=== PATIENT | female | born 1965 | race Caucasian/White ===

== ENCOUNTER 2016-05-05 10:13 | Day surgery (SDC) | payer OTHER, MEDICAID ==
[2016-05-04 16:04] LABS: ALANINE AMINOTRANSFERASE 32 IU/L (9-52); ALBUMIN 3.8 g/dL (3.5-5.0); ALKALINE PHOSPHATASE 64 IU/L (38-126); ANION GAP 10 mEq/L (8-16); ASPARTATE AMINOTRANSFERASE 19 IU/L (14-46); BILIRUBIN,TOTAL 0.5 mg/dL (0.1-1.4); CALCIUM 9.4 mg/dL (8.5-10.4); CARBON DIOXIDE 36 mEq/l (22-31); CHLORIDE 92 mEq/L (97-110); CREATININE 0.7 mg/dL (0.6-1.0); GLOMERULAR FILTRATION RATE > 60; GLUCOSE 110 mg/dL (70-100); SODIUM 138 mEq/L (134-144); TOTAL PROTEIN 7.2 g/dL (6.3-8.2)
--- NOTE | 2016-05-05 08:36 | CPEKG ---
Heart Rate: 65 RR Interval: 923 P-R Interval: 228 QRSD Interval: 104 QT Interval: 424 QTC Interval: 441 P [place]: 70 QRS [place]: 40 T Wave [place]: 46 EKG Severity - ABNORMAL ECG - EKG Impression: SINUS RHYTHM EKG Impression: FIRST DEGREE AV BLOCK EKG Impression: CONSIDER ANTEROSEPTAL INFARCT Electronically Signed By: John Gonzalez 05-May-2016 19:26:48
[~2016-05-05 10:13] MED LIST: LIDO/EPI 1% **Not for Epidural 20 ML MDV ONE; LIDOCAINE HCL 160 MG/4 ML LTA KIT TP ONE
[2016-05-05] MEDS ORDERED: LIDOCAINE 1% 5 ML SDV ID PRN (10:26)
[2016-05-05] MEDS ORDERED: LR 1,000 ML IV ONE (10:26)
[2016-05-05] MEDS ORDERED: LIDOCAINE 1% 5 ML SDV ONE (10:27)
[2016-05-05] MEDS ORDERED: DEXMEDETOMIDINE HCL 200 MCG/2 ML VIAL IV ONE (10:55)
[2016-05-05] MEDS ORDERED: KETAMINE 100 MG/10 ML SYR IVP ONE (10:56)
[2016-05-05] MEDS ORDERED: MIDAZOLAM 2 MG/2 ML VIAL ONE ×2 (10:58→11:35)
[2016-05-05] MEDS ORDERED: PROPOFOL 200 MG/20 ML VIAL ONE (11:02)
[2016-05-05 11:23] LABS: POTASSIUM 3.3 mEq/L (3.5-5.2)
[2016-05-05] MEDS ORDERED: PROPOFOL/EMULSION 500 MG/50 ML BOTTLE IV ONE (11:30)
[2016-05-05] MEDS ORDERED: fentaNYL 100 MCG/2 ML INJ ONE (11:31)
[2016-05-05] MEDS ORDERED: ROCURONIUM 50 MG/5 ML VIAL ONE (11:34)
[2016-05-05] MEDS ORDERED: SUCCINYLCHOLINE CHLORIDE*ANESTHESIA ONLY*200 MG/10 ML SYR IVP ONE (11:34)
[2016-05-05] MEDS ORDERED: LIDOCAINE 2% 5 ML SDV ONE (11:34)
[2016-05-05] MEDS ORDERED: SUGAMMADEX SODIUM 200 MG/2 ML VIAL IVP ONE (11:58)
[2016-05-05] MEDS ORDERED: HYDROCODONE/APAP 5/325 TAB ONE (13:36)
--- NOTE | 2016-05-05 15:27 | GOP ---
[f rep st] OPERATIVE REPORT DATE OF OPERATION: 05/05/2016 SURGEON: Neeraj Orlando MD ANESTHESIA: General endotracheal. PREOPERATIVE DIAGNOSIS: Tracheostomal fistula, persistent. POSTOPERATIVE DIAGNOSIS: Tracheostomal fistula, persistent. PROCEDURE PERFORMED: Planned and performed: Closure of tracheostomal fistula. FINDINGS: Tracheocutaneous fistula treated by resection of epithelialized margin with 3 layer closur e. ESTIMATED BLOOD LOSS: 10 mL. DESCRIPTION OF PROCEDURE: The patient was placed on the operating table in the supine position. Aft er induction of adequate general endotracheal anesthesia, sterile draping of the anterior neck was pe rformed. The endotracheal tube had been inserted distal to the tracheostomal fistula. The area surr ounding the tracheostomal fistula was infiltrated utilizing 1% lidocaine with 1:100,000 parts epineph rine. Once this had been completed, the epithelialized margin of the tracheostomal fistula was incis ed using a 15 blade. An elliptical incision was created. This was carried down to the subcutaneous tissues and down to the anterior tracheal wall. The epithelialized tissue was then discarded. A 3 l myles closure of the wound was then performed. Interrupted 3-0 Vicryl sutures were placed in the deep layer overlying the trachea, completely closing the soft tissue. A 2nd layer closure with 4-0 Vicry l sutures was placed, and the skin was closed with interrupted 5-0 nylon sutures. At this point, the neck skin was cleansed. A Band-Aid was applied. The patient was then awakened and transferred to [facility] postanesthesia recovery area in stable condition. FLUID REPLACEMENT: 1000 mL. COMPLICATIONS: None. /[id number]/MODL
== END 2016-05-05 13:51 | disposition home or self-care (01) ==
LOC: FSGY 10:13
PROVIDERS: ATTEND Otolaryngology
PROC: 0BQ10ZZ Repair Trachea, Open Approach (ICD-10-PCS; principal; 2016-05-05 11:00)
PROC: 0JQ40ZZ Repair Right Neck Subcutaneous Tissue and Fascia, Open Approach (ICD-10-PCS; principal; 2016-05-05 11:00)
DX: Z43.0 Encounter for attention to tracheostomy (principal); C14.0 Malignant neoplasm of pharynx, unspecified; E66.01 Morbid (severe) obesity due to excess calories; J44.9 Chronic obstructive pulmonary disease, unspecified; G89.29 Other chronic pain; G35 Multiple sclerosis; K21.9 Gastro-esophageal reflux disease without esophagitis; F32.9 Major depressive disorder, single episode, unspecified
CPT/HCPCS: J0330; J2250; J2704; J3010

== ENCOUNTER 2017-02-17 17:45 | Inpatient (IN) | payer OTHER, MEDICAID ==
[2017-02-17] MEDS ORDERED: OXYCODONE/APAP 5/325 TAB PO ONE (18:12)
[2017-02-17] MEDS ORDERED: IPRATROPIUM/ALBUTEROL 3 ML DEYVIAL IH ONE (18:24)
--- NOTE | 2017-02-17 18:24 | EDPHY ---
H & P Stated Complaint: generalized bodyaches, diarrhea,cough,dyspnea Time Seen by Provider: 02/17/17 18:09 HPI/ROS: CHIEF COMPLAINT: Cough, diarrhea HISTORY OF PRESENT ILLNESS: The patient is a 51-year-old female with a history of COPD and MS who comes to the emergency department complaining of cough for the last 5 days as well as diarrhea. She wears 1 L of oxygen at night but has felt increasingly short of breath over the last week. She was satting 78% at triage. She states that she was exposed to a niece who lives with her who is diagnosed with the flu yesterday. Patient thinks that she may have had fevers off and on over the last week but is not sure. No vomiting. No abdominal pain. Cough has been nonproductive. She denies chest pain. No sinus or throat symptoms. She does complain of diffuse body aches. REVIEW OF SYSTEMS: Constitutional: See HPI EENTM: denies: blurred vision, double vision, nose congestion Respiratory: See HPI Cardiac: denies: chest pain, irregular heart rate, lightheadedness, palpitations Gastrointestinal/Abdominal: denies: abdominal pain, diarrhea, nausea, vomiting, blood streaked stools Genitourinary: denies: dysuria, frequency, hematuria, pain Musculoskeletal: See HPI Skin: denies: lesions, rash, jaundice, bruising Neurological: denies: headache, numbness, paresthesia, tingling, dizziness, weakness Hematologic/Lymphatic: denies: blood clots, easy bleeding, easy bruising Immunologic/allergic: denies: HIV/AIDS, transplant EXAM: GENERAL: Appears older than stated age, weak HEAD: Atraumatic, normocephalic. EYES: Pupils equal round and reactive to light, extraocular movements intact, sclera anicteric, conjunctiva are normal. ENT: TMs normal, nares patent, oropharynx clear without exudates. Moist mucous membranes. NECK: Normal range of motion, supple without lymphadenopathy or JVD. LUNGS: Breath sounds clear to auscultation bilaterally and equal. No wheezes rales or rhonchi. HEART: Regular rate and rhythm without murmurs, rubs or gallops. ABDOMEN: Soft, nontender, normoactive bowel sounds. No guarding, no rebound. No masses appreciated. BACK: No CVA tenderness, no spinal tenderness, step-offs or deformities EXTREMITIES: Normal range of motion, no pitting or edema. No clubbing or cyanosis. NEUROLOGICAL: Cranial nerves II through XII grossly intact. Normal speech, normal gait. 5/5 strength, normal movement in all extremities, normal sensation PSYCH: Normal mood, normal affect. SKIN: Warm, dry, normal turgor, no visible rashes or lesions. Source: Patient Exam Limitations: No limitations - Personal History LMP (Females 10-55): Hysterectomy Current Tetanus Diphtheria and Acellular Pertussis (TDAP): Yes Tetanus Vaccine Date: 2014 - Medical/Surgical History Hx Asthma: No Hx Chronic Respiratory Disease: Yes Hx Diabetes: No Hx Cardiac Disease: No Hx Renal Disease: No Hx Cirrhosis: No Hx Alcoholism: No Hx HIV/AIDS: No Hx Splenectomy or Spleen Trauma: No Other PMH: MS, COPD, nerve pain in feet, TRACH, tube feeds, GTUBE, hysterectomy , vocal cord CA - Family History Significant Family History: No pertinent family hx - Social History Smoking Status: Current every day smoker Alcohol Use: None Drug Use: None Constitutional: Initial Vital Signs Temperature (C) 37.1 C 02/17/17 18:01 Heart Rate 80 02/17/17 18:01 Respiratory Rate 20 02/17/17 18:01 Blood Pressure 103/62 02/17/17 18:01 O2 Sat (%) 78 L 02/17/17 18:01 O2 Delivery Mode Nasal Cannula O2 (L/minute) 5 Allergies/Adverse Reactions: No Known Allergies Allergy (Verified 05/03/16 10:27) Home Medications: Medication Instructions Recorded Albuterol [Proventil Inhaler HFA 1 - 2 puffs IH Q4H PRN 01/12/16 (*)] Budesonide/Formoterol 160/4.5 2 puffs IH BID 01/12/16 [Symbicort 160-4.5 Mcg Inh (*)] Diclofenac Sodium [Voltaren 75 MG 75 mg PO BID 01/12/16 (*)] Gabapentin [Neurontin 100 MG (*)] 100 mg PO BID 01/12/16 Hydrochlorothiazide [HCTZ (*)] 25 mg PO BID 01/12/16 Ranitidine HCl [Zantac] 150 mg PO BID PRN 01/12/16 Amitriptyline HCl [Elavil 50 mg 200 mg PO HS 02/17/17 (*)] Cyclobenzaprine [Flexeril 10 MG 10 mg PO TID 02/17/17 (*)] DULoxetine [Cymbalta 60 MG (*)] 60 mg PO BID 02/17/17 Diphenoxylate HCl/Atrop Sulf 1 tab PO DAILY PRN 02/17/17 [Lomotil Tab (*)] Escitalopram Oxalate [Lexapro 10 20 mg PO DAILY 02/17/17 MG] Morphine Sulfate [Alicia] 100 mg PO BID 02/17/17 oxyCODONE IR [Oxycodone Ir (*)] 15 mg PO TID 02/17/17 predniSONE 5 mg PO DAILY 02/17/17 traMADol [Ultram 50 mg (*)] 50 - 100 mg PO Q6 PRN 02/17/17 Medical Decision Making - Diagnostics EKG Interpretation: An EKG obtained and was read and documented in trace view. Please see trace view for full reading and report. Sinus rhythm no acute ischemic changes, similar to previous Imaging: Discussed imaging studies w/ driver starting gate Radiologist ED Course/Re-evaluation: 7:30 p.m. I discussed the case with Dr. Mega Cross who agrees with admission and will accept to the medical floor on telemetry. He agrees with potassium repletion and antibiotics. The low potassium is likely due to her diarrhea. She has not yet provided a sample for testing. Initial flu tests are negative however considering exposure we will also send PCR. Differential Diagnosis: Partial list of the Differential diagnosis considered include but were not limited to; pneumonia, bronchitis, influenza, C difficile, dehydration , electrolyte abnormality and although unlikely based on the history and physical exam, I also considered sepsis, acute coronary disease, PE. - Data Points Laboratory Results: Laboratory Results 02/18/17 03:58 02/18/17 03:58 02/18/17 02/18/17 02/18/17 10:00 03:58 03:58 WBC 6.78 10^3/uL 10^3/uL (3.80-9.50) RBC 4.61 10^6/uL 10^6/uL (4.18-5.33) Hgb 15.0 g/dL g/dL (12.6-16.3) Hct 42.5 % % (38.0-47.0) MCV 92.2 fL fL (81.5-99.8) MCH 32.5 pg pg (27.9-34.1) MCHC 35.3 g/dL g/dL (32.4-36.7) RDW 13.1 % % (11.5-15.2) Plt Count 213 10^3/uL 10^3/uL (150-400) MPV 9.2 fL fL (8.7-11.7) Neut % (Auto) 75.0 % H % (39.3-74.2) Lymph % (Auto) 12.5 % L % (15.0-45.0) [place] % (Auto) 11.2 % % (4.5-13.0) Eos % (Auto) 0.1 % L % (0.6-7.6) Baso % (Auto) 0.3 % % (0.3-1.7) Nucleat RBC Rel Count 0.0 % % (0.0-0.2) Absolute Neuts (auto) 5.08 10^3/uL 10^3/uL (1.70-6.50) Absolute Lymphs (auto) 0.85 10^3/uL L 10^3/uL (1.00-3.00) Absolute Monos (auto) 0.76 10^3/uL 10^3/uL (0.30-0.80) Absolute Eos (auto) 0.01 10^3/uL L 10^3/uL (0.03-0.40) Absolute Basos (auto) 0.02 10^3/uL 10^3/uL (0.02-0.10) Absolute Nucleated RBC 0.00 10^3/uL 10^3/uL (0-0.01) Immature Gran % 0.9 % % (0.0-1.1) Seg Neutrophils % 67 % % Band Neutrophils % 10 % % Lymphocytes % 12 % % Monocytes % 10 % % Eosinophils % 1 % % Immature Gran # 0.06 10^3/uL 10^3/uL (0.00-0.10) Absolute Seg Neuts 4.54 10^/uL 10^/uL (1.70-6.50) Absolute Band Neuts 0.68 10^3/uL 10^3/uL (0.00-0.70) Absolute Lymphocytes 0.81 10^3/uL L 10^3/uL (1.00-3.00) Absolute Monocytes 0.68 10^3/uL 10^3/uL (0.30-0.80) Absolute Eosinophils 0.07 10^3/uL 10^3/uL (0.03-0.40) RBC/WBC/PLT Morphology NORMAL (NORMAL) Platelet Estimate ADEQUATE (ADEQ) Sodium 138 mEq/L mEq/L (134-144) Potassium 3.4 mEq/L L mEq/L (3.5-5.2) Chloride 97 mEq/L mEq/L (97-110) Carbon Dioxide 33 mEq/l H mEq/l (22-31) Anion Gap 8 mEq/L mEq/L (8-16) BUN 11 mg/dL mg/dL (7-23) Creatinine 0.7 mg/dL mg/dL (0.6-1.0) Estimated GFR > 60 Glucose 82 mg/dL mg/dL (70-100) Calcium 8.3 mg/dL L mg/dL (8.5-10.4) Magnesium 1.9 mg/dL mg/dL (1.6-2.3) Procalcitonin C. difficile Tox (PCR) NEGATIVE (NEGATIVE) 02/18/17 03:58 WBC RBC Hgb Hct MCV MCH MCHC RDW Plt Count MPV Neut % (Auto) Lymph % (Auto) [place] % (Auto) Eos % (Auto) Baso % (Auto) Nucleat RBC Rel Count Absolute Neuts (auto) Absolute Lymphs (auto) Absolute Monos (auto) Absolute Eos (auto) Absolute Basos (auto) Absolute Nucleated RBC Immature Gran % Seg Neutrophils % Band Neutrophils % Lymphocytes % Monocytes % Eosinophils % Immature Gran # Absolute Seg Neuts Absolute Band Neuts Absolute Lymphocytes Absolute Monocytes Absolute Eosinophils RBC/WBC/PLT Morphology Platelet Estimate Sodium Potassium Chloride Carbon Dioxide Anion Gap BUN Creatinine Estimated GFR Glucose Calcium Magnesium Procalcitonin 0.13 ng/mL H ng/mL (0.02-0.10) C. difficile Tox (PCR) Medications Given: Budesonide/Formoterol Fumarate (Symbicort 160-4.5 Mcg Inhaler) 2 puffs IH BID [facility] Stop: 08/17/17 08:59 Last Admin: 02/18/17 10:32 Dose: Not Given Duloxetine HCl (Cymbalta) 60 mg PO BID [facility] Stop: 08/17/17 08:59 Last Admin: 02/18/17 09:05 Dose: 60 mg Enoxaparin Sodium (Lovenox) 40 mg SC DAILY [facility] Stop: 08/17/17 08:59 Last Admin: 02/18/17 09:06 Dose: 40 mg Escitalopram Oxalate (Lexapro) 20 mg PO DAILY [facility] Stop: 08/17/17 08:59 Last Admin: 02/18/17 09:05 Dose: 20 mg Gabapentin (Neurontin) 100 mg PO BID PRN PRN Reason: NEUROPATHY Stop: 08/16/17 22:13 Last Admin: 02/17/17 22:55 Dose: 100 mg Miscellaneous Medication (Morphine Sulfate [Alicia]) 100 mg PO BID [facility] Stop: 08/17/17 08:59 Last Admin: 02/18/17 11:42 Dose: Not Given Nicotine (Nicoderm Cq) 21 mg TD DAILY [facility] Stop: 08/17/17 11:59 Last Admin: 02/18/17 12:34 Dose: 21 mg Oseltamivir Phosphate (Tamiflu) 75 mg PO BIDMEAL [facility] Stop: 02/22/17 08:01 Last Admin: 02/18/17 09:06 Dose: 75 mg Oxycodone HCl (Oxycodone Ir) 15 mg PO TID PRN PRN Reason: Pain, Severe Stop: 02/27/17 22:13 Last Admin: 02/18/17 03:51 Dose: 15 mg Prednisone (Prednisone) 40 mg PO DAILY [facility] Stop: 08/17/17 10:59 Last Admin: 02/18/17 11:47 Dose: 40 mg Discontinued Medications Albuterol/Ipratropium (Duoneb) 3 ml IH EDNOW ONE Stop: 02/17/17 18:25 Last Admin: 02/17/17 18:30 Dose: 3 ml Hydromorphone HCl (Dilaudid) 1 mg IVP EDNOW ONE Stop: 02/17/17 18:54 Last Admin: 02/17/17 19:14 Dose: 1 mg Sodium Chloride (Ns) 1,000 mls @ 0 mls/hr IV EDNOW ONE; Wide Open PRN Reason: Protocol Stop: 02/17/17 19:26 Last Admin: 02/17/17 19:35 Dose: 1,000 mls Magnesium Sulfate (Magnesium Sulf 2 Gm (Premix)) 50 mls @ 50 mls/hr IV EDNOW ONE Stop: 02/17/17 20:24 Last Admin: 02/17/17 19:38 Dose: 50 mls Azithromycin 500 mg/ Sodium (Chloride) 255 mls @ 255 mls/hr IV EDNOW ONE PRN Reason: Protocol Stop: 02/17/17 20:27 Last Admin: 02/17/17 21:27 Dose: 255 mls Cefazolin Sodium 1 gm/ Sodium (Chloride) 100 mls @ 400 mls/hr IV EDNOW ONE PRN Reason: Protocol Stop: 02/17/17 19:42 Last Admin: 02/17/17 20:18 Dose: 100 mls Potassium Chloride/Sodium Chloride (Ns W/ 20 Kcl/L) 1,000 mls @ 100 mls/hr IV CONT [facility] Stop: 08/16/17 22:14 Last Admin: 02/17/17 22:51 Dose: 1,000 mls Oxycodone HCl (Oxycodone Ir) 5 mg PO ONCE ONE Stop: 02/17/17 22:01 Last Admin: 02/17/17 21:45 Dose: 5 mg Oxycodone/Acetaminophen (Percocet 5/325) 1 tab PO EDNOW ONE Stop: 02/17/17 18:13 Last Admin: 02/17/17 18:15 Dose: Not Given Potassium Chloride (Klor-Con) 40 meq PO EDNOW ONE Stop: 02/17/17 19:26 Last Admin: 02/17/17 19:41 Dose: 40 meq Potassium Chloride (Klor-Con) 60 meq PO ONCE ONE Stop: 02/17/17 22:14 Last Admin: 02/17/17 22:49 Dose: 60 meq Prednisone (Prednisone) 5 mg PO DAILY [facility] Stop: 08/17/17 08:59 Last Admin: 02/18/17 09:06 Dose: 5 mg Departure - Departure Disposition: [facility] Acute Clinical Impression: Dehydration, Hypokalemia Pneumonia Qualifiers: Pneumonia type: due to unspecified organism Laterality: unspecified laterality Lung location: unspecified part of lung Qualified Code(s): J18.9 - Pneumonia, unspecified organism Condition: Fair
--- NOTE | 2017-02-17 18:34 | CPEKG ---
Heart Rate: 77 RR Interval: 779 P-R Interval: 192 QRSD Interval: 116 QT Interval: 416 QTC Interval: 471 P [place]: 36 QRS [place]: 25 T Wave [place]: 21 EKG Severity - ABNORMAL ECG - EKG Impression: SINUS RHYTHM EKG Impression: NONSPECIFIC INTRAVENTRICULAR CONDUCTION DELAY EKG Impression: ABNRM R PROG, CONSIDER ASMI OR LEAD PLACEMENT Electronically Signed By: Jay Mckeon 17-Feb-2017 18:57:49
[2017-02-17] MEDS ORDERED: HYDROmorphONE/DILAUDID 1 MG/ML INJ IVP ONE (18:53)
[2017-02-17 18:58] LABS: % IMMATURE GRANULYOCYTES 0.8 % (0.0-1.1); ABSOLUTE IMMATURE GRANULOCYTES 0.04 10^3/uL (0.00-0.10); ADD DIFF? NO; ADD MORPH? NO; ADD SCAN? YES; ATYPICAL LYMPHOCYTE FLAG 160 (0-99); FRAGMENT RBC FLAG 0 (0-99); HEMATOCRIT 41.5 % (38.0-47.0); LEFT SHIFT FLG 10 (0-99); LIPEMIA HEMOLYSIS FLAG 90 (0-99); MEAN CELL HEMOGLOBIN 32.3 pg (27.9-34.1); MEAN CELL HEMOGLOBIN CONCENTR. 36.1 g/dL (32.4-36.7); MEAN CELL VOLUME 89.2 fL (81.5-99.8); MEAN PLATELET VOLUME 9.3 fL (8.7-11.7); PLATELET CLUMPS FLAG 0 (0-99); PLATELET COUNT 232 10^3/uL (150-400); RED BLOOD CELL COUNT 4.65 10^6/uL (4.18-5.33); RED CELL DISTRIBUTION WIDTH 12.8 % (11.5-15.2)
[2017-02-17 19:06] LABS: INR 1.02 (0.83-1.16); PROTIME(PATIENT) 13.1 SEC (12.0-15.0); SCAN NEGATIVE
[2017-02-17 19:16] LABS: ALANINE AMINOTRANSFERASE 39 IU/L (9-52); ALBUMIN 3.1 g/dL (3.5-5.0); ALKALINE PHOSPHATASE 78 IU/L (38-126); ANION GAP 10 mEq/L (8-16); ASPARTATE AMINOTRANSFERASE 33 IU/L (14-46); BILIRUBIN,TOTAL 0.7 mg/dL (0.1-1.4); BILIRUBIN-CONJUGATED 0.6 mg/dL (0.0-0.5); BILIRUBIN-UNCONJUGATED 0.1 mg/dL (0.0-1.1); CALCIUM 8.2 mg/dL (8.5-10.4); CARBON DIOXIDE 32 mEq/l (22-31); CHLORIDE 93 mEq/L (97-110); CREATININE 0.8 mg/dL (0.6-1.0); GLOMERULAR FILTRATION RATE > 60; GLUCOSE 106 mg/dL (70-100); SODIUM 135 mEq/L (134-144); TOTAL PROTEIN 6.2 g/dL (6.3-8.2)
[2017-02-17 19:21] LABS: POTASSIUM 2.4 mEq/L (3.5-5.2)
[2017-02-17] MEDS ORDERED: NS 1,000 ML IV ONE (19:25)
[2017-02-17] MEDS ORDERED: MAGNESIUM SULF 2 GM/WATER 50 ML IV ONE (19:25)
[2017-02-17] MEDS ORDERED: POTASSIUM CL 10 MEQ TAB PO ONE (19:25)
[2017-02-17] MEDS ORDERED: ceFAZolin 1 GM in NS 100 ML IV ONE (19:28)
[2017-02-17] MEDS ORDERED: POTASSIUM CL 20 MEQ TAB ONE (19:45)
[2017-02-17] MEDS: AZITHROMYCIN IV 500 MG in NS 250 ML IV ONE ×2 (20:55→21:27)
[2017-02-17] MEDS ORDERED: oxyCODONE IR 5 MG TAB PO ONE (22:00)
[2017-02-17] MEDS ORDERED: ONDANSETRON DISINTEGRATING 4 MG TAB PO PRN (22:10)
[2017-02-17] MEDS ORDERED: ONDANSETRON 4 MG/2 ML VIAL IVP PRN (22:10)
[2017-02-17] MEDS ORDERED: POTASSIUM CL 20 MEQ TAB PO ONE (22:13)
[2017-02-17] MEDS ORDERED: NS W/ 20 KCl/L 1,000 ML IV SCH (22:15)
[2017-02-17] MEDS: GABAPENTIN 100 MG CAP PO PRN (22:55)
[2017-02-17] MEDS: oxyCODONE IR 15 MG TAB PO PRN (22:55)
[2017-02-17] MEDS: OSELTAMIVIR PHOSPHATE 75 MG CAP PO SCH (22:55)
--- NOTE | 2017-02-17 23:26 | PDGENHP ---
History and Physical - Chief Complaint SOB, Diarrhea - History of Present Illness 51 yo F w/ MS, chronic pain, hx of laryngeal CA, COPD, and HTN presents with 5 days of multiple symptoms. Patient first began to feel fatigued about 5 days ago. Then over the ensuing days she began to notice progressive fatigue, cough, SOB, and then diarrhea. The worsening diarrhea over the last 2 days is what led to her coming to the ED. She reports her niece had a viral illness in the last week as well. At the time of my evaluation patient is complaining only of fatigue. In the ED a flu PCR was positive and her laboratory work-up was notable for significant hypokalemia. Due to a CXR with multiple infiltrates, she received CAP coverage along with fluids, magnesium, and potassium. History Information - Allergies/Home Medication List Allergies/Adverse Reactions: No Known Allergies Allergy (Verified 05/03/16 10:27) Home Medications: Albuterol [Proventil Inhaler HFA (*)] 1 - 2 puffs IH Q4H PRN 01/12/16 [Last Taken 05/03/16] Budesonide/Formoterol 160/4.5 [Symbicort 160-4.5 Mcg Inh (*)] 2 puffs IH BID 07/24 [Last Taken 05/04/16] Diclofenac Sodium [Voltaren 75 MG (*)] 75 mg PO BID 01/12/16 [Last Taken ] Gabapentin [Neurontin 100 MG (*)] 100 mg PO BID 01/12/16 [Last Taken 02/17/17] Hydrochlorothiazide [HCTZ (*)] 25 mg PO BID 01/12/16 [Last Taken 02/17/17] Ranitidine HCl [Zantac] 150 mg PO BID PRN 01/12/16 [Last Taken 02/17/17] Amitriptyline HCl [Elavil 50 mg (*)] 200 mg PO HS 02/17/17 [Last Taken 02/16/17] Cyclobenzaprine [Flexeril 10 MG (*)] 10 mg PO TID 02/17/17 [Last Taken 02/17/17] DULoxetine [Cymbalta 60 MG (*)] 60 mg PO BID 02/17/17 [Last Taken 02/17/17] Diphenoxylate HCl/Atrop Sulf [Lomotil Tab (*)] 1 tab PO DAILY PRN 02/17/17 [ Last Taken Unknown] Escitalopram Oxalate [Lexapro 10 MG] 20 mg PO DAILY 02/17/17 [Last Taken ] Morphine Sulfate [Alicia] 100 mg PO BID 02/17/17 [Last Taken Unknown] oxyCODONE IR [Oxycodone Ir (*)] 15 mg PO TID 02/17/17 [Last Taken Unknown] predniSONE 5 mg PO DAILY 02/17/17 [Last Taken 02/17/17] traMADol [Ultram 50 mg (*)] 50 - 100 mg PO Q6 PRN 02/17/17 [Last Taken Unknown] I have personally reviewed and updated: family history, medical history - Past Medical History COPD, hypertension Additional medical history: Chronic pain. MS - Surgical History Additional surgical history: Partial laryngectomy - Family History Positive for: cancer - Social History Smoking Status: Current every day smoker Alcohol Use: None Drug Use: None Review of Systems Review of Systems: ROS: 10pt was reviewed & negative except for what was stated in HPI & below Physical Exam Physical Exam: Temp Pulse Resp BP Pulse Ox 36.6 C 78 19 111/76 94 02/17/17 21:15 02/17/17 21:15 02/17/17 21:15 02/17/17 21:15 02/17/17 21:15 O2 (L/minute) 4 Constitutional: no apparent distress, not in pain Eyes: PERRL, EOMI Ears, Nose, Mouth, Throat: moist mucous membranes, no oral mucosal ulcers Cardiovascular: regular rate and rhythym, no murmur, rub, or gallop, edema (2+ b /l MARTA) Respiratory: no respiratory distress, other (Crackles over bilateral mid-lung santos), No expiratory wheeze Gastrointestinal: normoactive bowel sounds, soft, non-tender abdomen Skin: warm, normal color Musculoskeletal: full muscle strength, no muscle tenderness Neurologic: AAOx3, CN II-XII Intact Psychiatric: interacting appropriately, not anxious Lab Data & Imaging Review 02/17/17 18:50 02/17/17 18:50 WBC 5.03 10^3/uL (3.80-9.50) 02/17/17 18:50 RBC 4.65 10^6/uL (4.18-5.33) 02/17/17 18:50 Hgb 15.0 g/dL (12.6-16.3) 02/17/17 18:50 Hct 41.5 % (38.0-47.0) 02/17/17 18:50 MCV 89.2 fL (81.5-99.8) 02/17/17 18:50 MCH 32.3 pg (27.9-34.1) 02/17/17 18:50 MCHC 36.1 g/dL (32.4-36.7) 02/17/17 18:50 RDW 12.8 % (11.5-15.2) 02/17/17 18:50 Plt Count 232 10^3/uL (150-400) 02/17/17 18:50 MPV 9.3 fL (8.7-11.7) 02/17/17 18:50 Neut % (Auto) 65.2 % (39.3-74.2) 02/17/17 18:50 Lymph % (Auto) 16.9 % (15.0-45.0) 02/17/17 18:50 [place] % (Auto) 16.9 % (4.5-13.0) H 02/17/17 18:50 Eos % (Auto) 0.0 % (0.6-7.6) L 02/17/17 18:50 Baso % (Auto) 0.2 % (0.3-1.7) L 02/17/17 18:50 Nucleat RBC Rel Count 0.0 % (0.0-0.2) 02/17/17 18:50 Absolute Neuts (auto) 3.28 10^3/uL (1.70-6.50) 02/17/17 18:50 Absolute Lymphs (auto) 0.85 10^3/uL (1.00-3.00) L 02/17/17 18:50 Absolute Monos (auto) 0.85 10^3/uL (0.30-0.80) H 02/17/17 18:50 Absolute Eos (auto) 0.00 10^3/uL (0.03-0.40) L 02/17/17 18:50 Absolute Basos (auto) 0.01 10^3/uL (0.02-0.10) L 02/17/17 18:50 Absolute Nucleated RBC 0.00 10^3/uL (0-0.01) 02/17/17 18:50 Immature Gran % 0.8 % (0.0-1.1) 02/17/17 18:50 Immature Gran # 0.04 10^3/uL (0.00-0.10) 02/17/17 18:50 PT 13.1 SEC (12.0-15.0) 02/17/17 18:50 INR 1.02 (0.83-1.16) 02/17/17 18:50 APTT 38.0 SEC (23.0-38.0) 02/17/17 18:50 VBG Lactic Acid 0.8 mmol/L (0.7-2.1) 02/17/17 18:50 Sodium 135 mEq/L (134-144) 02/17/17 18:50 Potassium 2.4 mEq/L (3.5-5.2) L* 02/17/17 18:50 Chloride 93 mEq/L (97-110) L 02/17/17 18:50 Carbon Dioxide 32 mEq/l (22-31) H 02/17/17 18:50 Anion Gap 10 mEq/L (8-16) 02/17/17 18:50 BUN 12 mg/dL (7-23) 02/17/17 18:50 Creatinine 0.8 mg/dL (0.6-1.0) 02/17/17 18:50 Estimated GFR > 60 02/17/17 18:50 Glucose 106 mg/dL (70-100) H 02/17/17 18:50 Calcium 8.2 mg/dL (8.5-10.4) L 02/17/17 18:50 Magnesium 1.4 mg/dL (1.6-2.3) L 02/17/17 Unknown Total Bilirubin 0.7 mg/dL (0.1-1.4) 02/17/17 18:50 Conjugated Bilirubin 0.6 mg/dL (0.0-0.5) H 02/17/17 18:50 Unconjugated Bilirubin 0.1 mg/dL (0.0-1.1) 02/17/17 18:50 AST 33 IU/L (14-46) 02/17/17 18:50 ALT 39 IU/L (9-52) 02/17/17 18:50 Alkaline Phosphatase 78 IU/L (38-126) 02/17/17 18:50 Total Protein 6.2 g/dL (6.3-8.2) L 02/17/17 18:50 Albumin 3.1 g/dL (3.5-5.0) L 02/17/17 18:50 Lipase 50 IU/L (23-300) 02/17/17 18:50 Nasal Influenza A PCR FLU A DETECTED (NEGATIVE) H 02/17/17 18:25 Nasal Influenza B PCR NEGATIVE FOR FLU B (NEGATIVE) 02/17/17 18:25 Influenza A,B Rapid NEGATIVE FOR FLU (NEGATIVE) 02/17/17 18:25 Visualized and Interpreted Chest x-ray results: Yes Chest X-Ray results: other (Bronchitis, atelectasis, and possible multifocal pneumonia) Assessment & Plan Assessment: 51 yo F presenting with fatigue, SOB, diarrhea, and possible pneumonia likely related to influenza infection. Plan: 1. Influenza - Likely explanatory of fatigue, diarrhea, and possible multifocal pneumonia. - Tamiflu 75 mg BID x5 days noting hospitalization and pre-existing pulmonary disease - mIVF w/ K 2. Diarrhea - Most likely related to above and complicated by significant hypokalemia. - Will check GI PCR to rule out additional infectious etiology 3. COPD, Acute on Chronic HRF - Currently requiring 3 L/min via NC, she usually wears 2L nocturnally. Worsening likely 2/2 acute respiratory infection. On Symbicort as an outpatient with on evidence of acute exacerbation currently. - Continue Symbicort, albuterol PRN - Influenza treatment as above - Wean O2 as able 4. Multifocal infiltrates - Possible early pneumonia, but favor viral etiology noting clinical picture. S/p abx in ED. - Hold further antibiotics, check procalcitonin 5. HTN - Will hold HCTZ noting dehydration, hypokalemia, and low/normal BP 6. Hypokalemia - Secondary to diarrhea, replete PRN 7. Chronic Pain - On morphine 100 mg BID, oxycodone 15 mg TID, gabapentin, duloxetine, and flexeril as an outpatient, will continue. 8. MS - On chronic low dose prednisone for this. Diet - Regular Code - Full Ppx - LMWH Dispo - Admit to observation status
[2017-02-18] MEDS: oxyCODONE IR 15 MG TAB PO PRN ×3 (03:51→23:45)
[2017-02-18 04:36] LABS: % IMMATURE GRANULYOCYTES 0.9 % (0.0-1.1); ABSOLUTE IMMATURE GRANULOCYTES 0.06 10^3/uL (0.00-0.10); ADD DIFF? NO; ADD MORPH? NO; ADD SCAN? YES; FRAGMENT RBC FLAG 0 (0-99); HEMATOCRIT 42.5 % (38.0-47.0); LEFT SHIFT FLG 10 (0-99); LIPEMIA HEMOLYSIS FLAG 90 (0-99); MEAN CELL HEMOGLOBIN 32.5 pg (27.9-34.1); MEAN CELL HEMOGLOBIN CONCENTR. 35.3 g/dL (32.4-36.7); MEAN CELL VOLUME 92.2 fL (81.5-99.8); MEAN PLATELET VOLUME 9.2 fL (8.7-11.7); PLATELET CLUMPS FLAG 0 (0-99); PLATELET COUNT 213 10^3/uL (150-400); RED BLOOD CELL COUNT 4.61 10^6/uL (4.18-5.33); RED CELL DISTRIBUTION WIDTH 13.1 % (11.5-15.2)
[2017-02-18 04:56] LABS: ANION GAP 8 mEq/L (8-16); CALCIUM 8.3 mg/dL (8.5-10.4); CARBON DIOXIDE 33 mEq/l (22-31); CHLORIDE 97 mEq/L (97-110); CREATININE 0.7 mg/dL (0.6-1.0); GLOMERULAR FILTRATION RATE > 60; GLUCOSE 82 mg/dL (70-100); MAGNESIUM 1.9 mg/dL (1.6-2.3); POTASSIUM 3.4 mEq/L (3.5-5.2); SODIUM 138 mEq/L (134-144)
[2017-02-18 04:58] LABS: ATYPICAL LYMPHOCYTE FLAG 150 (0-99)
[2017-02-18 05:19] LABS: SCAN POSITIVE
[2017-02-18 05:26] LABS: PLATELET ESTIMATE ADEQUATE (ADEQ)
[2017-02-18] MEDS ORDERED: predniSONE 5 MG TAB PO SCH (09:00)
[2017-02-18] MEDS: DULoxetine 60 MG CAP PO SCH ×2 (09:05→21:19)
[2017-02-18] MEDS: ESCITALOPRAM OXALATE 10 MG TAB PO SCH (09:05)
[2017-02-18] MEDS: OSELTAMIVIR PHOSPHATE 75 MG CAP PO SCH ×2 (09:06→18:06)
[2017-02-18] MEDS: ENOXAPARIN 40 MG/0.4 ML SYR SC SCH (09:06)
[2017-02-18] MEDS: BUDESONIDE/FORMOTEROL 160/4.5 60 PUFFS/MDI IH SCH ×2 (10:32→22:10)
--- NOTE | 2017-02-18 10:36 | ASMTCMCOM ---
CM Note CM Note Notes: 02/18/2017 Case Management Note: Met w/pt. SATNAM signed Pt lives with daughter Denice @ [phone]. Pt reports using [facility] in the past, but is not current with any home agency. No case management d/c needs identified at this time. There are no therapy evals ordered. Case Management d/c poc: Home independent when medically stable with follow up as directed. Date Signed: 02/18/2017 10:35 AM Electronically Signed By:Simona Roldan RN
--- NOTE | 2017-02-18 10:59 | HOSPPROG ---
Hospitalist Progress Note Assessment/Plan: Medicall complex patient First encounter 51 yo female admitted with Acute on Chronic resp failure due to influenza A infection. she also has diarrhea with electrolyte abnormalities #Influenza A #Acute on chronic resp failure, baseline is 2L nocturnally #COPD with mild exacerbation #Viral pneumonia, bilateral. Mildly elevated PC. No Leukocytosis, Afebrile #Diarrhea, w/u pending #Weakness and Deconditioning #Hypokalemia, improving #Hypomagnesemia, improving #HTN, holding HCTZ #Dehydration, on IVF #Chronic pain syndrome #MS, on chronic low dose prednisone Plan: -Start Prednisone, continue nebs -Trial off IVF -Check for c-diff, stool culture -Tamiflu -Hold off on abx -Replace Mg and K PRN -PT/OT -Full code -Lovenox for DVT proph -Dispo: change to inpatient Subjective: Still with diarrhea. Still with Hypoxemia. Feel's SOB. No CP. No N/V Objective: Vital Signs Temp Pulse Resp BP Pulse Ox 36.7 C 82 12 112/68 94 02/18/17 07:13 02/18/17 07:13 02/18/17 07:13 02/18/17 07:13 02/18/17 07:13 Laboratory Results 02/18/17 03:58 02/18/17 03:58 02/17/17 02/18/17 02/19/17 05:59 05:59 05:59 Intake Total 1960 Balance 1960 PT 13.1 SEC (12.0-15.0) 02/17/17 18:50 INR 1.02 (0.83-1.16) 02/17/17 18:50 - Physical Exam Constitutional: no apparent distress Eyes: PERRL Ears, Nose, Mouth, Throat: moist mucous membranes, hearing normal Cardiovascular: regular rate and rhythym Respiratory: no respiratory distress, reduced air movement, expiratory wheeze Gastrointestinal: normoactive bowel sounds, soft, non-tender abdomen Skin: warm Neurologic: AAOx3 Psychiatric: interacting appropriately, not anxious, not encephalopathic ICD10 Worksheet Patient Problems: Problems Problem Status Onset Dehydration Acute Hypokalemia Acute Pneumonia Acute Complication of feeding tube Acute Primary squamous cell carcinoma of throat Acute Throat cancer Acute Weakness Acute
--- NOTE | 2017-02-18 11:30 | PDMN ---
Medical Necessity Medical necessity: C/M review: est. > 2 MN LOS for eval and TX of acute and persistent - influenza A, hypoxic respiratory failure, COPD with mild exacerbation, bilateral viral pneumonia, diarrhea, weakness and deconditioning, hypokalemia, hypomagnesemia, dehydration, requiring IV fluids, ongoing oral Prednisone initiation, trail off IV fluids, Tamiflu, pulse oximetry, supplemental O2 4-5L/min, electrolyte replacement as needed, acute inpt PT/OT, comorbid HTN, chronic pain syndrome, chronic hypoxic respiratory failure on baseline nocturnal O2 2L/min., chronic pain syndrome, MS per H/P.
[2017-02-18] MEDS: MORPHINE SULFATE 100 MG PO SCH ×2 (11:42→21:20)
[2017-02-18] MEDS: predniSONE 20 MG TAB PO SCH (11:47)
[2017-02-18] MEDS: NICOTINE 21 MG/24 HR PATCH TD SCH (12:34)
[2017-02-18] MEDS ORDERED: LOPERAMIDE HCL 1 MG/5 ML UDCUP PO ONE (17:18)
[2017-02-18] MEDS ORDERED: PROTOCOL POTASSIUM 1 DOSE MISC PRN (17:34)
[2017-02-18] MEDS ORDERED: POTASSIUM CL 10 MEQ TAB PO ONE (17:44)
[2017-02-18 18:37] LABS: POTASSIUM 3.3 mEq/L (3.5-5.2)
[2017-02-18] MEDS: AMITRIPTYLINE HCL 100 MG TAB PO SCH (21:19)
[2017-02-18] MEDS: LOPERAMIDE HCL 2 MG CAP PO PRN ×2 (21:22→22:48)
[2017-02-18] MEDS: CYCLOBENZAPRINE 10 MG TAB PO PRN (21:23)
[2017-02-18] MEDS: ALBUTEROL 3 ML DEYVIAL IH PRN (22:10)
[2017-02-18] MEDS ORDERED: LOPERAMIDE HCL 2 MG CAP PO PRN (23:11)
[2017-02-19] MEDS ORDERED: POTASSIUM CL 10 MEQ TAB PO ONE ×3 (00:21→19:23)
[2017-02-19 04:48] LABS: POTASSIUM 3.2 mEq/L (3.5-5.2)
[2017-02-19] MEDS: BUDESONIDE/FORMOTEROL 160/4.5 60 PUFFS/MDI IH SCH ×2 (08:58→21:26)
[2017-02-19] MEDS: MORPHINE SULFATE 100 MG PO SCH ×2 (09:25→21:05)
[2017-02-19] MEDS: NICOTINE 21 MG/24 HR PATCH TD SCH (09:26)
[2017-02-19] MEDS: ENOXAPARIN 40 MG/0.4 ML SYR SC SCH (09:26)
[2017-02-19] MEDS: ESCITALOPRAM OXALATE 10 MG TAB PO SCH (09:26)
[2017-02-19] MEDS: predniSONE 20 MG TAB PO SCH (09:26)
[2017-02-19] MEDS: OSELTAMIVIR PHOSPHATE 75 MG CAP PO SCH ×2 (09:27→17:14)
[2017-02-19] MEDS: DULoxetine 60 MG CAP PO SCH ×2 (09:27→19:22)
[2017-02-19] MEDS: CYCLOBENZAPRINE 10 MG TAB PO PRN (09:32)
[2017-02-19] MEDS: oxyCODONE IR 15 MG TAB PO PRN ×2 (09:32→17:14)
[2017-02-19] MEDS ORDERED: FUROSEMIDE 20 MG/2 ML VIAL IVP ONE (10:13)
--- NOTE | 2017-02-19 10:20 | HOSPPROG ---
Hospitalist Progress Note Assessment/Plan: Medicall complex patient 51 yo female admitted with Acute on Chronic resp failure due to influenza A infection. Steroids were started n 02/19 and she is starting to feel better. However she is on 5L O2. She also has worsened LE edema. She reports some chronic lasix intermittently but this is not included in her home medication list. Initially, she received IVF due to Dehydration Diarrhea is improving. No signs of C-Diff #Influenza A #Acute on chronic resp failure, baseline is 2L nocturnally #COPD with mild exacerbation #Viral pneumonia, bilateral. Mildly elevated PC. No Leukocytosis, Afebrile #Diarrhea, w/u pending. A GI pathogen panel was ordered by the ED but it's unclear if it was sent #Weakness and Deconditioning #Hypokalemia, improving #Hypomagnesemia, improving #HTN, holding HCTZ #Dehydration, on IVF #Tobacco abuse disorder. On nicotine patch #Chronic pain syndrome #MS, on chronic low dose prednisone Plan: -Lasix 20mg IV x 1, may need additional -repeat CXR in a.m -check BNP now -Cont Tamiflu -Loperamide PRN -Hold off on abx -Replace Mg and K PRN -PT/OT -Full code -Lovenox for DVT proph -Dispo: Keep inpatient Subjective: Resp status is improving. + Cough. + leg swelling. Afebrile. Objective: Vital Signs Temp Pulse Resp BP Pulse Ox 36.7 C 88 16 108/85 H 90 L 02/19/17 07:07 02/19/17 09:05 02/19/17 09:05 02/19/17 07:07 02/19/17 09:05 Laboratory Results 02/19/17 03:30 02/18/17 02/19/17 02/20/17 05:59 05:59 05:59 Intake Total 1620 Balance 1620 PT 13.1 SEC (12.0-15.0) 02/17/17 18:50 INR 1.02 (0.83-1.16) 02/17/17 18:50 - Physical Exam Constitutional: no apparent distress Eyes: PERRL Ears, Nose, Mouth, Throat: moist mucous membranes, hearing normal Cardiovascular: regular rate and rhythym, edema (trace to 1 +) Respiratory: no respiratory distress, reduced air movement, rhonchi Gastrointestinal: normoactive bowel sounds, soft, non-tender abdomen Skin: warm Neurologic: AAOx3 Psychiatric: interacting appropriately, not anxious, not encephalopathic ICD10 Worksheet Patient Problems: Problems Problem Status Onset Dehydration Acute Hypokalemia Acute Pneumonia Acute Complication of feeding tube Acute Primary squamous cell carcinoma of throat Acute Throat cancer Acute Weakness Acute
[2017-02-19] MEDS: ACETAMINOPHEN 325 MG TAB PO PRN ×2 (12:18→19:21)
[2017-02-19 18:40] LABS: POTASSIUM 3.8 mEq/L (3.5-5.2)
[2017-02-19] MEDS: AMITRIPTYLINE HCL 100 MG TAB PO SCH (19:21)
[2017-02-20] MEDS: oxyCODONE IR 15 MG TAB PO PRN ×3 (02:14→20:22)
[2017-02-20] MEDS: CYCLOBENZAPRINE 10 MG TAB PO PRN ×3 (02:15→20:23)
[2017-02-20] MEDS: ALBUTEROL 3 ML DEYVIAL IH PRN (02:38)
[2017-02-20 05:42] LABS: ANION GAP 5 mEq/L (8-16); CALCIUM 8.5 mg/dL (8.5-10.4); CARBON DIOXIDE 33 mEq/l (22-31); CHLORIDE 100 mEq/L (97-110); CREATININE 0.5 mg/dL (0.6-1.0); GLOMERULAR FILTRATION RATE > 60; GLUCOSE 103 mg/dL (70-100); MAGNESIUM 1.3 mg/dL (1.6-2.3); POTASSIUM 3.4 mEq/L (3.5-5.2); SODIUM 138 mEq/L (134-144)
[2017-02-20] MEDS: guaiFENesin 600 MG TAB.ER PO PRN ×2 (06:10→20:22)
[2017-02-20] MEDS ORDERED: POTASSIUM CL 10 MEQ TAB PO ONE ×3 (07:49→11:00)
[2017-02-20] MEDS: BUDESONIDE/FORMOTEROL 160/4.5 60 PUFFS/MDI IH SCH ×2 (08:05→20:43)
[2017-02-20] MEDS ORDERED: MAGNESIUM SULF 2 GM/WATER 50 ML IV ONE (08:24)
[2017-02-20] MEDS: ESCITALOPRAM OXALATE 10 MG TAB PO SCH (08:47)
[2017-02-20] MEDS: DULoxetine 60 MG CAP PO SCH ×2 (08:47→20:23)
[2017-02-20] MEDS: predniSONE 20 MG TAB PO SCH (08:47)
[2017-02-20] MEDS: ENOXAPARIN 40 MG/0.4 ML SYR SC SCH (08:48)
[2017-02-20] MEDS: OSELTAMIVIR PHOSPHATE 75 MG CAP PO SCH ×2 (08:48→18:06)
[2017-02-20] MEDS: NICOTINE 21 MG/24 HR PATCH TD SCH (08:48)
[2017-02-20] MEDS: FUROSEMIDE 40 MG/4 ML VIAL IVP SCH ×2 (08:48→15:17)
[2017-02-20] MEDS ORDERED: POTASSIUM CL 20 MEQ TAB PO SCH (09:00)
[2017-02-20] MEDS: MORPHINE SULFATE 100 MG PO SCH ×2 (09:01→20:37)
[2017-02-20] MEDS: IPRATROPIUM/ALBUTEROL 3 ML DEYVIAL IH SCH ×2 (11:00→15:58)
--- NOTE | 2017-02-20 18:31 | HOSPPROG ---
Hospitalist Progress Note Assessment/Plan: Assessment: 51-year-old female presenting with acute COPD exacerbation in the setting of influenza a virus, complicated by suspected acute diastolic congestive heart failure exacerbation Plan: 1. Acute hypoxic respiratory failure. Evidenced by SpO2 of 78% on room air, 89 % on 4 L nasal cannula, up titrated to 7 L high-flow oxygen in order to accomplish stabilization, secondary to a combination of acute COPD exacerbation as well as diastolic CHF -continue high-flow oxygen -continue diuresis 2. Acute diastolic congestive heart failure exacerbation. New problem this provider, further workup indicated. Suspected, evidenced by BNP of 500 + pulmonary edema on chest x-ray, personally interpreted in the setting of IV fluids -increase Lasix to 40 mg IV twice daily, gauge effect -monitor strict I&Os, weights -replete potassium and magnesium -get echocardiogram -monitor electrolytes 3. Influenza a infection. Patient is a presenting with viral syndrome, initiated on Tamiflu, continue 4. Acute COPD exacerbation. Evidenced by diffuse expiratory wheezes, current smoker, counseled patient regarding nicotine replacement therapy including -continue prednisone 40 mg daily -continue scheduled nebulizers 5. Chronic pain with continuous opiate dependency. Continue home pain medications Diet. Regular Prophylaxis. High risk patient, Lovenox 40 Code. Full Disposition. Anticipated discharge uncertain this time, pending pulmonary stabilization Subjective: Patient reports she still shortness of breath with any level of activity Objective: Vital Signs Temp Pulse Resp BP Pulse Ox 36.8 C 88 18 117/68 93 02/20/17 12:00 02/20/17 16:00 02/20/17 12:00 02/20/17 12:00 02/20/17 16:00 Laboratory Results 02/20/17 04:03 02/19/17 02/20/17 02/21/17 05:59 05:59 05:59 Intake Total 1620 2100 650 Balance 1620 2100 650 PT 13.1 SEC (12.0-15.0) 02/17/17 18:50 INR 1.02 (0.83-1.16) 02/17/17 18:50 - Physical Exam Constitutional: no apparent distress, not in pain, chronically ill appearing, uncomfortable Cardiovascular: no murmur, rub, or gallop, tachycardia, edema (Bilateral 1+), No irregularly irregular Respiratory: expiratory wheeze, inspiratory crackles, No reduced air movement, No bronchial breath sounds Gastrointestinal: normoactive bowel sounds, soft, non-tender abdomen, no palpable masses Neurologic: AAOx3, sensation intact bilaterally, No weakness Psychiatric: interacting appropriately, not anxious, not encephalopathic, thought process linear ICD10 Worksheet Patient Problems: Problems Problem Status Onset Throat cancer Acute Weakness Acute Dehydration Acute Complication of feeding tube Acute Primary squamous cell carcinoma of throat Acute Pneumonia Acute Hypokalemia Acute
[2017-02-20] MEDS: AMITRIPTYLINE HCL 100 MG TAB PO SCH (20:22)
[2017-02-20] MEDS: GABAPENTIN 100 MG CAP PO PRN (20:23)
[2017-02-21] MEDS: IPRATROPIUM/ALBUTEROL 3 ML DEYVIAL IH SCH ×5 (00:11→22:10)
[2017-02-21 05:25] LABS: ANION GAP 9 mEq/L (8-16); CALCIUM 8.3 mg/dL (8.5-10.4); CARBON DIOXIDE 36 mEq/l (22-31); CHLORIDE 91 mEq/L (97-110); CREATININE 0.6 mg/dL (0.6-1.0); GLOMERULAR FILTRATION RATE > 60; GLUCOSE 86 mg/dL (70-100); MAGNESIUM 1.3 mg/dL (1.6-2.3); POTASSIUM 3.5 mEq/L (3.5-5.2); SODIUM 136 mEq/L (134-144)
[2017-02-21] MEDS: oxyCODONE IR 15 MG TAB PO PRN ×2 (07:15→21:08)
[2017-02-21] MEDS ORDERED: MAGNESIUM SULF 2 GM/WATER 50 ML IV ONE (08:26)
[2017-02-21] MEDS ORDERED: POTASSIUM CL 20 MEQ TAB PO ONE (08:27)
[2017-02-21] MEDS: OSELTAMIVIR PHOSPHATE 75 MG CAP PO SCH ×2 (08:45→18:01)
[2017-02-21] MEDS: ESCITALOPRAM OXALATE 10 MG TAB PO SCH (08:45)
[2017-02-21] MEDS: predniSONE 20 MG TAB PO SCH (08:45)
[2017-02-21] MEDS: DULoxetine 60 MG CAP PO SCH ×2 (08:45→20:46)
[2017-02-21] MEDS: FUROSEMIDE 40 MG/4 ML VIAL IVP SCH ×2 (08:45→14:19)
[2017-02-21] MEDS: NICOTINE 21 MG/24 HR PATCH TD SCH (08:46)
[2017-02-21] MEDS: ENOXAPARIN 40 MG/0.4 ML SYR SC SCH (08:46)
[2017-02-21] MEDS: MORPHINE SULFATE 100 MG PO SCH ×2 (09:13→20:49)
[2017-02-21] MEDS: BUDESONIDE/FORMOTEROL 160/4.5 60 PUFFS/MDI IH SCH ×2 (10:49→22:10)
--- NOTE | 2017-02-21 10:58 | ECHO ---
[email or web address] [address] [address] Main: [phone] Fax: Transthoracic Echocardiogram Name: KAITLIN MCCORMICK MR#: [id number] Study Date: 02/21/2017 Study Time: 09:19 AM Date of : 1965 Age: 51 year(s) Height: 170.2 cm (67 in.) Weight: 99.79 kg (220 lb.) BSA: 2.11 m2 Gender: Female Examination: Echo Indication: FLU, Eval LV Fx Image Quality: Contrast: Requested by: Froilan Maldonado BP: 95 mmHg/80 mmHg Heart Rate: Rhythm: Indication: FLU, Eval LV Fx Procedure Staff [employer] Teacher: Phong Sandoval Reading Physician: Chet Sanderson Requesting Provider: Conclusions: Normal size left ventricle. EF is 68 %. The mitral valve is normal in appearance and function. The aortic valve is normal in appearance and function. No pericardial effusion. Measurements: Chambers Valvular Assessment AV/MV Valvular Assessment TV/PV Normal Normal Normal Name Value Range Name Value Range Name Value Range Ao Rose (MM): 3.3 cm (2.2 cm-3.7 AV Vmax: 1.68 m/s (1 m/s-1.7 PV Vmax: 1.36 m/s (0.6 m/s-0.9 cm) m/s) m/s) IVSd (2D): 1.0 cm (0.6 cm-1.1 AV maxP mmHg ( - ) PV PGmax: 7 mmHg ( - ) cm) LVOT Vmax: 1.41 m/s (0.7 m/s-1.1 LVDd (2D): 3.3 cm (3.9 cm-5.3 m/s) cm) MV E Vmax: 0.67 m/s ( - ) LVDs (2D): 2.1 cm (2.1 cm-4 MV A Vmax: 1.09 m/s ( - ) cm) MV E/A: 0.61 ( - ) LVPWd (2D): 1.0 cm ( - ) LVEF (2D): 68 (>=54 %) Continued Measurements: Chambers Valvular Assessment AV/MV Name Value Name Value LADs Lon.2 cm MV E/E' Septal: 14.90 LA Area: 14.4 cm2 MV E/E' Lateral: 12.20 LA Volume: 40 ml LA Volume Index: 19.0 ml/m2 Patient: KAITLIN MCCORMICK Study Date: 02/21/2017 Page 1 of 2 09:19 AM Findings: Left Ventricle: Normal size left ventricle. No LV hypertrophy. Global hypercontractility of the left ventricle. EF is 68 %. No regional wall motion abnormality. Normal diastolic LV function. Right Ventricle: Normal size right ventricle. Left Atrium: The left atrium is normal in size. Right Atrium: The right atrium is normal in size. Mitral Valve: The mitral valve is normal in appearance and function. Aortic Valve: The aortic valve is normal in appearance and function. The aortic valve is tri-leaflet. Tricuspid Valve: The tricuspid valve is normal in appearance and function. There is no tricuspid valve regurgitation. Pulmonic Valve: The pulmonic valve is normal in appearance and function. Aorta: The aorta is normal. Pericardium: No pericardial effusion. (No Signature Object) Patient: KAITLIN MCCORMICK Study Date: 02/21/2017 Page 2 of 2 09:19 AM [id number]
[2017-02-21] MEDS: GABAPENTIN 100 MG CAP PO PRN (12:19)
[2017-02-21] MEDS: guaiFENesin 600 MG TAB.ER PO PRN (12:19)
[2017-02-21] MEDS: guaiFENesin 600 MG TAB.ER PO SCH ×2 (12:43→20:45)
--- NOTE | 2017-02-21 14:19 | ASMTCMCOM ---
CM Note CM Note Notes: 02/21/2017 Case Management Note PT is recommending home. Case Management d/c poc: remains home independent when medically stable with follow up as directed. Pt lives with daughter Denice. Case Management available if needs change. Date Signed: 02/21/2017 02:18 PM Electronically Signed By:Simona Roldan RN
--- NOTE | 2017-02-21 14:44 | HOSPPROG ---
Hospitalist Progress Note Assessment/Plan: Assessment: 51-year-old female presenting with acute COPD exacerbation in the setting of influenza A viral pneumonia, complicated by suspected acute diastolic congestive heart failure exacerbation Plan: 1. Acute hypoxic respiratory failure. Evidenced by SpO2 of 78% on room air, 89 % on 4 L nasal cannula, up titrated to 7 L high-flow oxygen in order to accomplish stabilization, secondary to a combination of acute COPD exacerbation , viral pneumonia as well as diastolic CHF -continue high-flow oxygen -continue diuresis 2. Acute diastolic congestive heart failure exacerbation. Pulm edema on CXR, BNP 500, Echo w/ preserved EF, likely 2/2 IVF w/ tx for PNA -increased Lasix to 40 mg IV twice daily, cont to monitor effect -monitor strict I&Os, weights -replete potassium and magnesium -net neg 1kg LOS 3. Influenza A viral pneumonia. Cont total 5 days of tamiflu, CXR (personally interpreted) w/ increased bilat PNA and increased resp requirements 4. Acute COPD exacerbation. Evidenced by diffuse expiratory wheezes, current smoker -counseled patient regarding nicotine replacement therapy including -continue prednisone 40 mg daily, D4/5 -continue scheduled nebulizers -add mucinex 5. Chronic pain with continuous opiate dependency. Continue home pain medications 6. Hx laryngeal cancer. In remission, has not required PEG tube use since June 2016 -d/w Dr. Gutiérrez, she reports she can remove tube today, will proceed per patient request Diet. Regular Prophylaxis. High risk patient, Lovenox 40 Code. Full Disposition. Anticipated discharge uncertain this time, pending pulmonary stabilization High-level medical complexity, high risk patient for worsening morbidity and/or mortality secondary to the issues as outlined above. Subjective: feels like she has mucous but is not getting expectorated, ongoing SOB w/ exertion Objective: Vital Signs Temp Pulse Resp BP Pulse Ox 36.7 C 104 H 18 106/61 88 L 02/21/17 11:23 02/21/17 11:23 02/21/17 10:50 02/21/17 11:23 02/21/17 11:23 Laboratory Results 02/21/17 03:33 02/20/17 02/21/17 02/22/17 05:59 05:59 05:59 Intake Total 2100 1900 Output Total 400 Balance 2100 1500 PT 13.1 SEC (12.0-15.0) 02/17/17 18:50 INR 1.02 (0.83-1.16) 02/17/17 18:50 - Physical Exam Constitutional: no apparent distress, chronically ill appearing, obese, uncomfortable Cardiovascular: no murmur, rub, or gallop, tachycardia, edema (trace bilat LE), No irregularly irregular Respiratory: expiratory wheeze (faint), inspiratory crackles, No bronchial breath sounds, No respiratory distress Gastrointestinal: normoactive bowel sounds, soft, non-tender abdomen, no palpable masses, other (left side PEG tube) Skin: other (no erythema around PEG site) Neurologic: AAOx3, sensation intact bilaterally, No weakness Psychiatric: interacting appropriately, not anxious, not encephalopathic, thought process linear ICD10 Worksheet Patient Problems: Problems Problem Status Onset Dehydration Acute Hypokalemia Acute Pneumonia Acute Complication of feeding tube Acute Primary squamous cell carcinoma of throat Acute Throat cancer Acute Weakness Acute
[2017-02-21] MEDS: CYCLOBENZAPRINE 10 MG TAB PO PRN (18:06)
[2017-02-21] MEDS: AMITRIPTYLINE HCL 100 MG TAB PO SCH (20:46)
[2017-02-22] MEDS: CYCLOBENZAPRINE 10 MG TAB PO PRN ×2 (03:53→12:56)
[2017-02-22] MEDS: oxyCODONE IR 15 MG TAB PO PRN ×3 (03:53→21:04)
[2017-02-22 04:34] LABS: ANION GAP 9 mEq/L (8-16); CALCIUM 8.6 mg/dL (8.5-10.4); CARBON DIOXIDE 37 mEq/l (22-31); CHLORIDE 88 mEq/L (97-110); CREATININE 0.7 mg/dL (0.6-1.0); GLOMERULAR FILTRATION RATE > 60; GLUCOSE 100 mg/dL (70-100); MAGNESIUM 1.4 mg/dL (1.6-2.3); POTASSIUM 3.3 mEq/L (3.5-5.2); SODIUM 134 mEq/L (134-144)
[2017-02-22] MEDS: IPRATROPIUM/ALBUTEROL 3 ML DEYVIAL IH SCH ×4 (05:13→23:42)
[2017-02-22] MEDS: ENOXAPARIN 40 MG/0.4 ML SYR SC SCH ×2 (07:39→09:45)
[2017-02-22] MEDS: OSELTAMIVIR PHOSPHATE 75 MG CAP PO SCH (07:56)
[2017-02-22] MEDS: predniSONE 20 MG TAB PO SCH (07:56)
[2017-02-22] MEDS: guaiFENesin 600 MG TAB.ER PO SCH ×2 (07:56→21:00)
[2017-02-22] MEDS: ESCITALOPRAM OXALATE 10 MG TAB PO SCH (07:56)
[2017-02-22] MEDS: DULoxetine 60 MG CAP PO SCH ×2 (07:56→21:00)
[2017-02-22] MEDS: FUROSEMIDE 40 MG/4 ML VIAL IVP SCH (07:57)
[2017-02-22] MEDS: NICOTINE 21 MG/24 HR PATCH TD SCH (07:57)
[2017-02-22] MEDS: MORPHINE SULFATE 100 MG PO SCH ×2 (08:07→20:59)
[2017-02-22] MEDS ORDERED: POTASSIUM CL 20 MEQ TAB PO ONE (08:21)
[2017-02-22] MEDS ORDERED: MAGNESIUM SULF 2 GM/WATER 50 ML IV ONE (08:22)
[2017-02-22] MEDS ORDERED: IOPAMIDOL (ISOVUE 370) 100 ML BTL IV ONE (08:30)
[2017-02-22 08:51] LABS: % IMMATURE GRANULYOCYTES 0.5 % (0.0-1.1); ABSOLUTE IMMATURE GRANULOCYTES 0.06 10^3/uL (0.00-0.10); ADD DIFF? NO; ADD MORPH? NO; ADD SCAN? NO; ATYPICAL LYMPHOCYTE FLAG 60 (0-99); FRAGMENT RBC FLAG 0 (0-99); HEMATOCRIT 39.3 % (38.0-47.0); LEFT SHIFT FLG 0 (0-99); LIPEMIA HEMOLYSIS FLAG 90 (0-99); MEAN CELL HEMOGLOBIN 32.2 pg (27.9-34.1); MEAN CELL HEMOGLOBIN CONCENTR. 35.6 g/dL (32.4-36.7); MEAN CELL VOLUME 90.3 fL (81.5-99.8); MEAN PLATELET VOLUME 8.9 fL (8.7-11.7); PLATELET CLUMPS FLAG 0 (0-99); PLATELET COUNT 398 10^3/uL (150-400); RED BLOOD CELL COUNT 4.35 10^6/uL (4.18-5.33); RED CELL DISTRIBUTION WIDTH 12.9 % (11.5-15.2)
[2017-02-22 08:53] LABS: BASE EXCESS 12.6 mEq/L (-2.5-2.5); BICARBONATE 37 mEq/L (22-26); MEASURED OXYGEN SATURATION 96 % (92-95); PCO2 46 mmHg (34-38); PO2 79 mmHg (65-75); TCO2 39 mEq/L (23-27)
[2017-02-22 08:55] LABS: O2 CONCENTRATIION 20 % (0-100); P/F RATIO 395 RATIO
[2017-02-22] MEDS: POTASSIUM CL 20 MEQ TAB PO SCH (09:46)
[2017-02-22] MEDS: VANCOMYCIN 1.25 GM in D5W 250 ML IV SCH ×2 (10:09→21:09)
--- NOTE | 2017-02-22 11:01 | HOSPPROG ---
Hospitalist Progress Note Assessment/Plan: Assessment: 51-year-old female presenting with acute COPD exacerbation in the setting of influenza A viral pneumonia, complicated by suspected acute diastolic congestive heart failure exacerbation and possible concomitant bacterial pneumonia Plan: 1. Acute hypoxic respiratory failure. Worsening overnight w/ increased tachypnea/SOB and increased o2 requirements, escalated to vapotherm and 20- 30LPM high flow -CTA this AM w/o PE, appears to have RLL lobar infiltrate as well as viral pneumonia appearance -stop diuresis -add Abx -d/w Dr. Jeff Jones, appreciate consultation, he recs empiric Abx -ABG w/o substantial hypercapnea 2. Acute diastolic congestive heart failure exacerbation. Pulm edema on CXR, BNP 500, Echo w/ preserved EF, likely 2/2 IVF w/ tx for PNA -CT w/o overwhelming persistence, will hold further diuresis given rising bicarb level -cont to monitor weights 3. Influenza A viral pneumonia. Cont total 5 days of tamiflu, persists on CT 4. Acute COPD exacerbation. Evidenced by diffuse expiratory wheezes, current smoker -counseled patient regarding nicotine replacement therapy including -continue prednisone 40 mg daily, D5/5 -continue scheduled nebulizers -add mucinex 5. Chronic pain with continuous opiate dependency. Continue home pain medications 6. Hx laryngeal cancer. In remission, PEG tube out 7. Possible bacterial pneumonia. RLL consolidation, potential superinfxn given time course -D#1 Vanco/Zosyn -Pulm consult Diet. Regular, liquids x 12 hrs Prophylaxis. High risk patient, Lovenox 40 Code. Full Disposition. Anticipated discharge uncertain this time, pending pulmonary stabilization High-level medical complexity, high risk patient for worsening morbidity and/or mortality secondary to the issues as outlined above. Subjective: worsening SOB o/n, PEG removed Objective: Vital Signs Temp Pulse Resp BP Pulse Ox 36.9 C 102 H 22 H 101/66 100 02/22/17 07:11 02/22/17 07:11 02/22/17 07:11 02/22/17 07:11 02/22/17 07:11 Laboratory Results 02/22/17 08:40 02/22/17 04:00 02/21/17 02/22/17 02/23/17 05:59 05:59 05:59 Intake Total 1900 2280 Output Total 400 1950 Balance 1500 330 PT 13.1 SEC (12.0-15.0) 02/17/17 18:50 INR 1.02 (0.83-1.16) 02/17/17 18:50 - Physical Exam Constitutional: appears nourished, not in pain, chronically ill appearing, obese , uncomfortable Cardiovascular: regular rate and rhythym, no murmur, rub, or gallop, edema (1+ bilat LE), No irregularly irregular, No tachycardia Respiratory: reduced air movement (right mid post seg), bronchial breath sounds (R lung), rhonchi (R mid posterior segment), No expiratory wheeze Gastrointestinal: normoactive bowel sounds, soft, non-tender abdomen, no palpable masses, No distension Neurologic: AAOx3, sensation intact bilaterally, No facial droop Psychiatric: interacting appropriately, not anxious, not encephalopathic, thought process linear ICD10 Worksheet Patient Problems: Problems Problem Status Onset Throat cancer Acute Weakness Acute Dehydration Acute Complication of feeding tube Acute Primary squamous cell carcinoma of throat Acute Pneumonia Acute Hypokalemia Acute
[2017-02-22] MEDS: BUDESONIDE/FORMOTEROL 160/4.5 60 PUFFS/MDI IH SCH ×2 (11:30→20:32)
--- NOTE | 2017-02-22 11:36 | GCON ---
[f rep st] CONSULTATION CHEST CONSULTATION REASON FOR CONSULTATION: Chronic obstructive pulmonary disease, pneumonia. HISTORY OF PRESENT ILLNESS: The patient is an extremely pleasant 51-year-old white female with a pas t medical history of chronic obstructive pulmonary disease, hypertension, and chronic pain, also hist ory of laryngeal cancer. She was admitted on 02/17/2017 with increasing breathlessness. She was jorge gnosed with influenza and a viral pneumonitis. She was begun on Tamiflu, which she has finished. Ov er the last 24 hours, she has increasing oxygen requirements. A CT scan of the chest was ordered. I n discussion with the patient, she states she has continued to be markedly breathless, especially wit h any form of exertion. She also continues to cough. She complains of mouth pain. PAST MEDICAL HISTORY: Again seen for chronic pain, chronic obstructive pulmonary disease, hypertensi on. ALLERGIES: No known allergies to medications. SOCIAL HISTORY: She is a 40+ pack-year smoker and is a current everyday smoker. No significant alco hol use. MEDICATIONS: At home include Symbicort, Voltaren, Neurontin, hydrochlorothiazide, Zantac, Elavil, Pr oventil, Flexeril, Cymbalta, Lomotil, Lexapro, Alicia, oxycodone, prednisone, and tramadol. PHYSICAL EXAM: VITAL SIGNS: Blood pressure 101/66, pulse 102, respirations 22, temperature 36.9, ox ygen saturation 100% on 20 L high-flow oxygen. GENERAL: She is a well-developed 51-year-old white f emale who is resting comfortably, in mild respiratory distress. HEENT: Eyes: PERRL, EOMI. Throat s hows no erythema or tonsillar hypertrophy. She does have whitish plaques on the underside of her lip . NECK: Supple. No cervical adenopathy. HEART: Regular rate and rhythm, without murmurs, rubs, o r gallops. LUNGS: Diminished breath sounds, prolongation of expiratory phase. ABDOMEN: Soft, nont tamika. Bowel sounds are present in all 4 quadrants. EXTREMITIES: No clubbing, cyanosis, or edema. LABORATORY DATA: White count 12.8, hemoglobin 14, hematocrit 39. Platelet count is 398. Sodium 134 , potassium 3.3, chloride 88. CO2 is 37, BUN 14, creatinine 0.7. Glucose is 100. Arterial blood ga s, pH 7.52, pCO2 46, pO2 79, bicarb 39. Oxygen saturation is 96%. CT scan of the chest reveals a di ffuse pneumonitis there is evidence of a right lower lobe pneumonia. IMPRESSION: 1. Influenza. 2. Viral pneumonitis. 3. New lobar pneumonia, likely bacterial. 4. Chronic obstructive pulmonary disease with acute exacerbation. RECOMMENDATIONS: 1. Agree with adding antibiotics. Agree with vancomycin and Zosyn. 2. Continue prednisone at current dose. 3. Frequent nebulizing with both albuterol and Atrovent. 4. DVT and PE prophylaxis. 5. Stress ulcer prophylaxis. Thank you so much for allowing me to participate in the care of this interesting patient. Will theresa correia along with you. /[id number]/MODL
[2017-02-22] MEDS: PIPERACILLIN/TAZO 4.5 GM/DEX 100 ML IV SCH ×3 (12:44→23:26)
[2017-02-22] MEDS: NYSTATIN SUSP 500000 UNIT/5 ML UDCUP PO SCH ×2 (16:00→20:59)
[2017-02-22] MEDS: AMITRIPTYLINE HCL 100 MG TAB PO SCH (21:00)
[2017-02-23] MEDS: ACETAMINOPHEN 325 MG TAB PO PRN (01:42)
[2017-02-23] MEDS: PIPERACILLIN/TAZO 4.5 GM/DEX 100 ML IV SCH ×2 (05:06→13:01)
[2017-02-23] MEDS: NYSTATIN SUSP 500000 UNIT/5 ML UDCUP PO SCH ×4 (05:06→20:47)
[2017-02-23] MEDS: IPRATROPIUM/ALBUTEROL 3 ML DEYVIAL IH SCH ×4 (05:26→23:24)
[2017-02-23 05:55] LABS: CALCIUM 8.7 mg/dL (8.5-10.4); CHLORIDE 86 mEq/L (97-110); CREATININE 0.8 mg/dL (0.6-1.0); GLOMERULAR FILTRATION RATE > 60; GLUCOSE 96 mg/dL (70-100); MAGNESIUM 1.8 mg/dL (1.6-2.3); POTASSIUM 3.5 mEq/L (3.5-5.2); SODIUM 133 mEq/L (134-144)
[2017-02-23 06:03] LABS: ANION GAP 6 mEq/L (8-16)
[2017-02-23 06:04] LABS: CARBON DIOXIDE 41 mEq/l (22-31)
[2017-02-23] MEDS: oxyCODONE IR 15 MG TAB PO PRN ×2 (09:45→20:57)
[2017-02-23] MEDS: MORPHINE SULFATE 100 MG PO SCH ×2 (09:45→20:52)
[2017-02-23] MEDS: POTASSIUM CL 20 MEQ TAB PO SCH (10:28)
[2017-02-23] MEDS: predniSONE 20 MG TAB PO SCH (10:28)
[2017-02-23] MEDS: DULoxetine 60 MG CAP PO SCH ×2 (10:28→20:52)
[2017-02-23] MEDS: ESCITALOPRAM OXALATE 10 MG TAB PO SCH (10:28)
[2017-02-23] MEDS: guaiFENesin 600 MG TAB.ER PO SCH ×2 (10:29→20:48)
[2017-02-23] MEDS: NICOTINE 21 MG/24 HR PATCH TD SCH (10:29)
[2017-02-23] MEDS: ENOXAPARIN 40 MG/0.4 ML SYR SC SCH (10:29)
[2017-02-23] MEDS: VANCOMYCIN 1.25 GM in D5W 250 ML IV SCH (10:32)
[2017-02-23] MEDS: BUDESONIDE/FORMOTEROL 160/4.5 60 PUFFS/MDI IH SCH ×2 (10:39→21:14)
--- NOTE | 2017-02-23 13:25 | HOSPPROG ---
Hospitalist Progress Note Assessment/Plan: Assessment: 51-year-old female presenting with acute COPD exacerbation in the setting of influenza A viral pneumonia, complicated by suspected acute diastolic congestive heart failure exacerbation and possible concomitant bacterial pneumonia Plan: 1. Acute hypoxic respiratory failure. Escalated to vapotherm, stabilized on 15LPM -cont to wean o2 requirements -will definitely require home o2 arrangements 2. Acute diastolic congestive heart failure exacerbation. Resolving ground glass opacities on CT, likely diuresed effectively and is now euvolemic -cont to monitor weights -hold further lasix 3. Influenza A viral pneumonia. S/p 5 days of tamiflu, persists on CT 4. Acute COPD exacerbation. Evidenced by diffuse expiratory wheezes, current smoker -counseled patient regarding nicotine replacement therapy including -continue prednisone 40 mg daily, D#6, will possibly need a taper given her ongoing e/o reactive airways -continue scheduled nebulizers -added mucinex 5. Chronic pain with continuous opiate dependency. Continue home pain medications 6. Hx laryngeal cancer. In remission, PEG tube out, counseled her regarding healing at the site, currently bandaged w/ gauze and tegaderm 7. Possible bacterial pneumonia. RLL consolidation, symptomatically improving today s/p starting Abx -D#2 Abx, adjust Vanco/Zosyn to Ceftriaxone given lobar consolidation, as it is unlikely that she has MRSA/Pseudomonas given that PCT was only marginally elevated at 0.13, more likely streptococcus -appreciate ongoing Pulm consult Diet. Regular Prophylaxis. High risk patient, Lovenox 40 Code. Full Disposition. Anticipated discharge uncertain this time, pending pulmonary stabilization and manageable o2 requirements at home. Subjective: counseled patient re: wound healing at PEG site, chest discomfort improving today Objective: Vital Signs Temp Pulse Resp BP Pulse Ox 36.8 C 101 H 20 112/76 94 02/23/17 11:02 02/23/17 11:02 02/23/17 11:02 02/23/17 11:02 02/23/17 11:02 Laboratory Results 02/22/17 08:40 02/23/17 03:41 02/22/17 02/23/17 02/24/17 05:59 05:59 05:59 Intake Total 2280 2267 250 Output Total 1950 2450 Balance 330 -183 250 PT 13.1 SEC (12.0-15.0) 02/17/17 18:50 INR 1.02 (0.83-1.16) 02/17/17 18:50 - Time Spent With Patient Time Spent with Patient: greater than 35 minutes Time Spent with Patient: Greater than 35 minutes spent on this patients care, greater than 50% of time spent counseling, educating, and coordinating care regarding the above mentioned plan. - Physical Exam Constitutional: not in pain, chronically ill appearing, uncomfortable Cardiovascular: edema (2+ bilat LE), No systolic murmur, No irregularly irregular, No tachycardia Respiratory: inspiratory crackles (bilat bases), bronchial breath sounds, rhonchi (on R on inspiration), No expiratory wheeze Gastrointestinal: normoactive bowel sounds, soft, non-tender abdomen, no palpable masses Skin: other (serous leakage from PEG site, no erythema) Neurologic: AAOx3 Psychiatric: interacting appropriately, not anxious, not encephalopathic, thought process linear ICD10 Worksheet Patient Problems: Problems Problem Status Onset Throat cancer Acute Weakness Acute Dehydration Acute Complication of feeding tube Acute Primary squamous cell carcinoma of throat Acute Pneumonia Acute Hypokalemia Acute
--- NOTE | 2017-02-23 14:10 | WOCRNPDOC ---
WOCRN Advanced Assessment Note - Skin Integrity Problem, Advanced Assess Left Upper Abdomen Drain Site Dressing Type: Gauze, Tegaderm Film Dressing Description: Clean/Dry, Intact Exudate Amount: Moderate Exudate Color: Brown Integumentary Issue Intervention: Visualized Under Dressing Oralia Wound Tissue: Erythema (From 3-9 oclock) Skin Integrity Problem Comment: G tube removed and site drainage is denuding the skin approx 1x2 cm section from about 3-[address] urostomy pouch over area to protect skin. If the drainage continues to contact the skin it will continue to break it down. Wound RN will round again next week.
--- NOTE | 2017-02-23 14:58 | SOAPPROG ---
SOAP Progress Note Assessment/Plan: Assessment/plan: * Viral pneumonitis-diffuse * Lobar pneumonia- likely bacterial -continue current antibiotics * Acute respiratory failure-still requiring high-flow oxygen. * Influenza * Chronic obstructive pulmonary disease -continue steroids and nebs Subjective: Feels lip better. Still requiring high of FiO2. Objective: Vital Signs Temp Pulse Resp BP Pulse Ox 36.8 C 101 H 20 112/76 94 02/23/17 11:02 02/23/17 11:02 02/23/17 11:02 02/23/17 11:02 02/23/17 11:02 Laboratory Results 02/22/17 08:40 02/23/17 03:41 02/22/17 02/23/17 02/24/17 05:59 05:59 05:59 Intake Total 2280 2267 250 Output Total 1950 2450 Balance 330 -183 250 PT 13.1 SEC (12.0-15.0) 02/17/17 18:50 INR 1.02 (0.83-1.16) 02/17/17 18:50 Physical Exam - Physical Exam General Appearance: alert, no apparent distress EENT: PERRL/EOMI Neck: non-tender, full range of motion Respiratory: crackles (Scattered), No respiratory distress, No wheezing Cardiac/Chest: normal peripheral pulses, regular rate, rhythm, systolic murmur Peripheral Pulses: 2+: carotid (R), carotid (L), femoral (R), femoral (L), dorsalis-pedis (R), dorsalis-pedis (L) Abdomen: normal bowel sounds, non-tender, soft Pelvic Exam: deferred Rectal: deferred Skin: normal color, warm/dry Extremities: normal range of motion, non-tender, normal inspection, normal capillary refill Neuro/Psych: no motor/sensory deficits, alert, normal mood/affect, oriented x 3 ICD10 Worksheet Patient Problems: Problems Problem Status Onset Dehydration Acute Hypokalemia Acute Pneumonia Acute Complication of feeding tube Acute Primary squamous cell carcinoma of throat Acute Throat cancer Acute Weakness Acute
[2017-02-23] MEDS: AMITRIPTYLINE HCL 100 MG TAB PO SCH (20:48)
[2017-02-24] MEDS: IPRATROPIUM/ALBUTEROL 3 ML DEYVIAL IH SCH ×4 (05:36→23:30)
[2017-02-24] MEDS: oxyCODONE IR 15 MG TAB PO PRN ×2 (07:23→19:30)
--- NOTE | 2017-02-24 09:52 | HOSPPROG ---
Hospitalist Progress Note Assessment/Plan: # acute on chronic hypoxic/hypercapnic resp failure - currently high O2 requirements, nocturnal O2 at baseline - appreciate pulm consult - cont abx, BDs, flutter valve # COPD with acute exacerbation - nebs, pred, abx - bicarb climbing - recheck BMP today; may need to repeat ABG # lobar consolidation - agree with rocephin, follow closely # influenza A+ - s/p tamiflu x 5 days # viral pneumonitis - # hx laryngeal cancer - PEG removed, ostomy bag in place # hepatic cyst - check US given hx laryngeal cancer # chronic pain on continuous narcotics - morphine 100 bid, oxy prn, gabapentin # htn - hold hctz Subjective: SOB slightly better; feels stronger Objective: Vital Signs Temp Pulse Resp BP Pulse Ox 36.8 C 99 17 112/63 89 L 02/24/17 07:00 02/24/17 07:00 02/24/17 07:00 02/24/17 07:00 02/24/17 07:00 Laboratory Results 02/22/17 08:40 02/23/17 03:41 02/23/17 02/24/17 02/25/17 05:59 05:59 05:59 Intake Total 2267 650 Output Total 2450 1000 Balance -183 -350 PT 13.1 SEC (12.0-15.0) 02/17/17 18:50 INR 1.02 (0.83-1.16) 02/17/17 18:50 chart reviewed CTA reviewed - Physical Exam Constitutional: uncomfortable Cardiovascular: regular rate and rhythym, no murmur, rub, or gallop Respiratory: no respiratory distress, reduced air movement, expiratory wheeze, rhonchi, No clear to auscultation Gastrointestinal: normoactive bowel sounds, soft, non-tender abdomen, no palpable masses, other (ostomy over previous PEG site) ICD10 Worksheet Patient Problems: Problems Problem Status Onset Throat cancer Acute Weakness Acute Dehydration Acute Complication of feeding tube Acute Primary squamous cell carcinoma of throat Acute Pneumonia Acute Hypokalemia Acute
[2017-02-24] MEDS: NICOTINE 21 MG/24 HR PATCH TD SCH (09:59)
[2017-02-24] MEDS: ESCITALOPRAM OXALATE 10 MG TAB PO SCH (10:00)
[2017-02-24] MEDS: guaiFENesin 600 MG TAB.ER PO SCH ×2 (10:00→21:02)
[2017-02-24] MEDS: POTASSIUM CL 20 MEQ TAB PO SCH (10:01)
[2017-02-24] MEDS: ENOXAPARIN 40 MG/0.4 ML SYR SC SCH (10:01)
[2017-02-24] MEDS: predniSONE 20 MG TAB PO SCH (10:01)
[2017-02-24] MEDS: DULoxetine 60 MG CAP PO SCH ×2 (10:01→21:02)
[2017-02-24] MEDS: NYSTATIN SUSP 500000 UNIT/5 ML UDCUP PO SCH ×4 (10:02→21:03)
[2017-02-24] MEDS: MORPHINE SULFATE 100 MG PO SCH ×2 (10:02→21:01)
[2017-02-24] MEDS: BUDESONIDE/FORMOTEROL 160/4.5 60 PUFFS/MDI IH SCH ×2 (10:23→23:33)
[2017-02-24 10:51] LABS: ANION GAP 9 mEq/L (8-16); CALCIUM 8.9 mg/dL (8.5-10.4); CARBON DIOXIDE 35 mEq/l (22-31); CHLORIDE 92 mEq/L (97-110); CREATININE 0.6 mg/dL (0.6-1.0); GLOMERULAR FILTRATION RATE > 60; GLUCOSE 94 mg/dL (70-100); POTASSIUM 3.3 mEq/L (3.5-5.2); SODIUM 136 mEq/L (134-144)
[2017-02-24] MEDS ORDERED: POTASSIUM CL 20 MEQ TAB PO ONE (14:42)
--- NOTE | 2017-02-24 14:51 | SOAPPROG ---
SOAP Progress Note Assessment/Plan: Assessment/plan: * Viral pneumonitis-diffuse * Lobar pneumonia- likely bacterial -continue current antibiotics * Acute respiratory failure-still requiring high-flow oxygen. Currently at 15 L -check ABG in the morning * Influenza-status post Tamiflu * Chronic obstructive pulmonary disease -continue steroids and nebs * PT/OT-begin ambulation the halls Subjective: Resting comfortably. Feels somewhat better. Objective: Vital Signs Temp Pulse Resp BP Pulse Ox 36.8 C 92 14 123/76 H 94 02/24/17 12:00 02/24/17 12:00 02/24/17 12:00 02/24/17 12:00 02/24/17 12:00 Laboratory Results 02/22/17 08:40 02/24/17 10:02 02/23/17 02/24/17 02/25/17 05:59 05:59 05:59 Intake Total 2267 650 Output Total 2450 1000 Balance -183 -350 PT 13.1 SEC (12.0-15.0) 02/17/17 18:50 INR 1.02 (0.83-1.16) 02/17/17 18:50 Physical Exam - Physical Exam General Appearance: alert, no apparent distress EENT: PERRL/EOMI Neck: non-tender, supple Respiratory: crackles (Bibasilar), prolonged expiration, No respiratory distress , No wheezing Cardiac/Chest: normal peripheral pulses, regular rate, rhythm Abdomen: normal bowel sounds, non-tender, soft Pelvic Exam: deferred Rectal: deferred Skin: normal color, warm/dry Extremities: normal range of motion, non-tender, normal inspection, normal capillary refill ICD10 Worksheet Patient Problems: Problems Problem Status Onset Dehydration Acute Hypokalemia Acute Pneumonia Acute Complication of feeding tube Acute Primary squamous cell carcinoma of throat Acute Throat cancer Acute Weakness Acute
[2017-02-24] MEDS: AMITRIPTYLINE HCL 100 MG TAB PO SCH (21:02)
[2017-02-25] MEDS: oxyCODONE IR 15 MG TAB PO PRN ×2 (04:19→13:20)
[2017-02-25] MEDS: CYCLOBENZAPRINE 10 MG TAB PO PRN ×2 (04:21→21:26)
[2017-02-25] MEDS: NYSTATIN SUSP 500000 UNIT/5 ML UDCUP PO SCH ×4 (04:23→21:28)
[2017-02-25 05:54] LABS: ABSOLUTE IMMATURE GRANULOCYTES 0.11 10^3/uL (0.00-0.10); ADD DIFF? NO; ADD MORPH? NO; ADD SCAN? NO; ATYPICAL LYMPHOCYTE FLAG 50 (0-99); FRAGMENT RBC FLAG 0 (0-99); HEMATOCRIT 40.1 % (38.0-47.0); HEMOGLOBIN 13.2 g/dL (12.6-16.3); LEFT SHIFT FLG 10 (0-99); LIPEMIA HEMOLYSIS FLAG 80 (0-99); MEAN CELL HEMOGLOBIN 31.3 pg (27.9-34.1); MEAN CELL HEMOGLOBIN CONCENTR. 32.9 g/dL (32.4-36.7); MEAN PLATELET VOLUME 9.6 fL (8.7-11.7); PLATELET CLUMPS FLAG 0 (0-99); PLATELET COUNT 619 10^3/uL (150-400); RED BLOOD CELL COUNT 4.22 10^6/uL (4.18-5.33); RED CELL DISTRIBUTION WIDTH 12.8 % (11.5-15.2)
[2017-02-25 06:10] LABS: ANION GAP 7 mEq/L (8-16); CALCIUM 9.2 mg/dL (8.5-10.4); CARBON DIOXIDE 36 mEq/l (22-31); CHLORIDE 97 mEq/L (97-110); CREATININE 0.7 mg/dL (0.6-1.0); GLOMERULAR FILTRATION RATE > 60; GLUCOSE 88 mg/dL (70-100); POTASSIUM 4.4 mEq/L (3.5-5.2); SODIUM 140 mEq/L (134-144)
[2017-02-25] MEDS: IPRATROPIUM/ALBUTEROL 3 ML DEYVIAL IH SCH ×4 (06:19→22:39)
[2017-02-25] MEDS ORDERED: FUROSEMIDE 20 MG/2 ML VIAL IVP ONE (09:04)
[2017-02-25] MEDS: BUDESONIDE/FORMOTEROL 160/4.5 60 PUFFS/MDI IH SCH ×2 (09:05→20:18)
--- NOTE | 2017-02-25 09:07 | HOSPPROG ---
Hospitalist Progress Note Assessment/Plan: # acute on chronic hypoxic/hypercapnic resp failure - currently high O2 requirements, nocturnal O2 at baseline - appreciate pulm consult - cont abx, BDs, flutter valve # COPD with acute exacerbation - nebs, pred, abx # lobar consolidation, community acquired pna - agree with rocephin, follow closely # influenza A+/viral pneumonitis - s/p tamiflu x 5 days # possible vol overload - will give lasix 20 IV x 1 and follow bicarb, O2 requirements # hx laryngeal cancer - PEG removed, ostomy bag in place # hepatic cyst - check US given hx laryngeal cancer # chronic pain on continuous narcotics - morphine 100 bid, oxy prn, gabapentin # htn - hold hctz Subjective: still feels SOB Objective: Vital Signs Temp Pulse Resp BP Pulse Ox 36.7 C 86 15 126/78 H 92 02/25/17 04:00 02/25/17 04:00 02/25/17 04:00 02/25/17 04:00 02/25/17 04:00 Laboratory Results 02/25/17 03:59 02/25/17 03:59 02/24/17 02/25/17 02/26/17 05:59 05:59 05:59 Intake Total 650 1700 Output Total 1000 2350 Balance -350 -650 PT 13.1 SEC (12.0-15.0) 02/17/17 18:50 INR 1.02 (0.83-1.16) 02/17/17 18:50 high risk on oxymask - Physical Exam Constitutional: uncomfortable Cardiovascular: regular rate and rhythym, no murmur, rub, or gallop Respiratory: expiratory wheeze, inspiratory crackles (risht sided), respiratory distress (mod), No bronchial breath sounds Gastrointestinal: normoactive bowel sounds, soft, non-tender abdomen, no palpable masses ICD10 Worksheet Patient Problems: Problems Problem Status Onset Throat cancer Acute Weakness Acute Dehydration Acute Complication of feeding tube Acute Primary squamous cell carcinoma of throat Acute Pneumonia Acute Hypokalemia Acute
[2017-02-25] MEDS: guaiFENesin 600 MG TAB.ER PO SCH ×2 (09:11→21:27)
[2017-02-25] MEDS: MORPHINE SULFATE 100 MG PO SCH ×2 (09:12→21:26)
[2017-02-25] MEDS: predniSONE 20 MG TAB PO SCH (09:12)
[2017-02-25] MEDS: ESCITALOPRAM OXALATE 10 MG TAB PO SCH (09:12)
[2017-02-25] MEDS: DULoxetine 60 MG CAP PO SCH ×2 (09:12→21:27)
[2017-02-25] MEDS: POTASSIUM CL 20 MEQ TAB PO SCH (09:13)
[2017-02-25] MEDS: ENOXAPARIN 40 MG/0.4 ML SYR SC SCH (09:16)
[2017-02-25] MEDS: NICOTINE 21 MG/24 HR PATCH TD SCH (09:18)
[2017-02-25] MEDS: ACETAMINOPHEN 325 MG TAB PO PRN (10:14)
--- NOTE | 2017-02-25 14:22 | SOAPPROG ---
SOAP Progress Note Assessment/Plan: Assessment/plan: * Viral pneumonitis-diffuse * Lobar pneumonia- likely bacterial -continue current antibiotics * Acute respiratory failure-still requiring high-flow oxygen. Currently at 15 L. having difficulties coughing up sputum -will add Mucomyst nebs -tremor or aggressive pulmonary toilet * Influenza-status post Tamiflu * Chronic obstructive pulmonary disease -continue steroids and nebs * PT/OT-begin ambulation the halls Subjective: Still complains of breathlessness. Feels like she can't cough up sputum Objective: Vital Signs Temp Pulse Resp BP Pulse Ox 37.0 C 87 18 116/67 92 02/25/17 12:00 02/25/17 12:00 02/25/17 12:00 02/25/17 12:00 02/25/17 12:00 Laboratory Results 02/25/17 03:59 02/25/17 03:59 02/24/17 02/25/17 02/26/17 05:59 05:59 05:59 Intake Total 650 1700 Output Total 1000 2350 Balance -350 -650 PT 13.1 SEC (12.0-15.0) 02/17/17 18:50 INR 1.02 (0.83-1.16) 02/17/17 18:50 Physical Exam - Physical Exam General Appearance: alert, no apparent distress EENT: PERRL/EOMI, pharynx normal Neck: non-tender, full range of motion, supple, normal inspection Respiratory: crackles (Bibasilar), No respiratory distress, No wheezing Cardiac/Chest: normal peripheral pulses, regular rate, rhythm Abdomen: normal bowel sounds, non-tender, soft Pelvic Exam: deferred Rectal: deferred Lymphatic: no adenopathy Neuro/Psych: alert ICD10 Worksheet Patient Problems: Problems Problem Status Onset Dehydration Acute Hypokalemia Acute Pneumonia Acute Complication of feeding tube Acute Primary squamous cell carcinoma of throat Acute Throat cancer Acute Weakness Acute
--- NOTE | 2017-02-25 17:18 | ASMTCMCOM ---
CM Note CM Note Notes: Reviewed chart regarding discharge plan, pt's progress. Per MD notes, pt w/ diffuse viral PNA, acute resp failure requiring high-flow oxygen (15L), difficulty w/ sputum. PT/OT to re-eval and treat; last notes rec home w/ no needs. Pt lives w/ her dghtr Alison. CM will cont to follow for potential needs. Current Discharge Plan: TBD Date Signed: 02/25/2017 05:18 PM Electronically Signed By:Giovanna Echevarria RN
[2017-02-25] MEDS: ACETYLCYSTEINE 10% IH/PO 4 ML VIAL IH SCH ×2 (17:54→22:39)
[2017-02-25] MEDS: AMITRIPTYLINE HCL 100 MG TAB PO SCH (21:27)
[2017-02-26] MEDS: IPRATROPIUM/ALBUTEROL 3 ML DEYVIAL IH SCH ×4 (05:04→22:55)
[2017-02-26] MEDS: ACETYLCYSTEINE 10% IH/PO 4 ML VIAL IH SCH ×3 (05:05→16:54)
[2017-02-26] MEDS: NYSTATIN SUSP 500000 UNIT/5 ML UDCUP PO SCH ×4 (05:16→21:00)
[2017-02-26] MEDS: oxyCODONE IR 15 MG TAB PO PRN ×3 (05:17→21:07)
[2017-02-26 05:40] LABS: % IMMATURE GRANULYOCYTES 1.7 % (0.0-1.1); ABSOLUTE IMMATURE GRANULOCYTES 0.24 10^3/uL (0.00-0.10); ADD DIFF? NO; ADD MORPH? NO; ADD SCAN? NO; ATYPICAL LYMPHOCYTE FLAG 40 (0-99); FRAGMENT RBC FLAG 0 (0-99); HEMATOCRIT 38.2 % (38.0-47.0); HEMOGLOBIN 12.5 g/dL (12.6-16.3); LEFT SHIFT FLG 10 (0-99); LIPEMIA HEMOLYSIS FLAG 80 (0-99); MEAN CELL HEMOGLOBIN 31.3 pg (27.9-34.1); MEAN CELL HEMOGLOBIN CONCENTR. 32.7 g/dL (32.4-36.7); MEAN CELL VOLUME 95.7 fL (81.5-99.8); MEAN PLATELET VOLUME 9.5 fL (8.7-11.7); PLATELET CLUMPS FLAG 0 (0-99); PLATELET COUNT 612 10^3/uL (150-400); RED BLOOD CELL COUNT 3.99 10^6/uL (4.18-5.33); RED CELL DISTRIBUTION WIDTH 12.8 % (11.5-15.2)
[2017-02-26 06:06] LABS: ANION GAP 7 mEq/L (8-16); CALCIUM 9.2 mg/dL (8.5-10.4); CARBON DIOXIDE 35 mEq/l (22-31); CHLORIDE 95 mEq/L (97-110); CREATININE 0.8 mg/dL (0.6-1.0); GLOMERULAR FILTRATION RATE > 60; GLUCOSE 96 mg/dL (70-100); POTASSIUM 4.2 mEq/L (3.5-5.2); SODIUM 137 mEq/L (134-144)
[2017-02-26] MEDS: BUDESONIDE/FORMOTEROL 160/4.5 60 PUFFS/MDI IH SCH ×2 (09:10→22:52)
[2017-02-26] MEDS: ESCITALOPRAM OXALATE 10 MG TAB PO SCH (10:14)
[2017-02-26] MEDS: MORPHINE SULFATE 100 MG PO SCH ×2 (10:14→21:06)
[2017-02-26] MEDS: predniSONE 20 MG TAB PO SCH (10:14)
[2017-02-26] MEDS: DULoxetine 60 MG CAP PO SCH ×2 (10:14→21:01)
[2017-02-26] MEDS: guaiFENesin 600 MG TAB.ER PO SCH ×2 (10:15→21:01)
[2017-02-26] MEDS: POTASSIUM CL 20 MEQ TAB PO SCH (10:15)
[2017-02-26] MEDS: NICOTINE 21 MG/24 HR PATCH TD SCH (10:18)
[2017-02-26] MEDS ORDERED: FUROSEMIDE 20 MG/2 ML VIAL IVP ONE (10:18)
[2017-02-26] MEDS: ENOXAPARIN 40 MG/0.4 ML SYR SC SCH (10:19)
--- NOTE | 2017-02-26 10:20 | HOSPPROG ---
Hospitalist Progress Note Assessment/Plan: # acute on chronic hypoxic/hypercapnic resp failure - currently high O2 requirements, nocturnal O2 at baseline - appreciate pulm consult - cont abx, BDs, flutter valve, mucomyst added # COPD with acute exacerbation - nebs, pred, abx # community acquired pna, RLL - agree with rocephin (completed azith), follow closely # influenza A+/viral pneumonitis - s/p tamiflu x 5 days # mild vol overload - repeat lasix 20 IV x 1 and follow bicarb, O2 requirements # hx laryngeal cancer - PEG removed, ostomy bag in place # hepatic cyst, benign # chronic pain on continuous narcotics - morphine 100 bid, oxy prn, gabapentin # htn - hold hctz Subjective: breathing continues to feel better; still SOB with ambulation Objective: Vital Signs Temp Pulse Resp BP Pulse Ox 36.8 C 85 13 136/83 H 92 02/26/17 08:00 02/26/17 08:00 02/26/17 08:00 02/26/17 08:00 02/26/17 08:00 Laboratory Results 02/26/17 03:45 02/26/17 03:45 02/25/17 02/26/17 02/27/17 05:59 05:59 05:59 Intake Total 1700 2170 Output Total 2350 925 800 Balance -650 1245 -800 PT 13.1 SEC (12.0-15.0) 02/17/17 18:50 INR 1.02 (0.83-1.16) 02/17/17 18:50 - Physical Exam Constitutional: uncomfortable Cardiovascular: regular rate and rhythym, no murmur, rub, or gallop Respiratory: expiratory wheeze, respiratory distress (mod), rhonchi, No clear to auscultation, No reduced air movement Gastrointestinal: normoactive bowel sounds, soft, non-tender abdomen, no palpable masses ICD10 Worksheet Patient Problems: Problems Problem Status Onset Throat cancer Acute Weakness Acute Dehydration Acute Complication of feeding tube Acute Primary squamous cell carcinoma of throat Acute Pneumonia Acute Hypokalemia Acute
[2017-02-26] MEDS: CYCLOBENZAPRINE 10 MG TAB PO PRN ×3 (10:30→21:06)
--- NOTE | 2017-02-26 11:10 | SOAPPROG ---
SOAP Progress Note Assessment/Plan: Assessment/plan: * Viral pneumonitis-diffuse * Lobar pneumonia- likely bacterial -continue current antibiotics * Acute respiratory failure-improved. Oxygen requirements down to 6 L -continue aggressive pulmonary toilet * Influenza-status post Tamiflu * Chronic obstructive pulmonary disease -continue steroids and nebs * PT/OT-begin ambulation the halls Subjective: Looks and feels markedly improved Objective: Vital Signs Temp Pulse Resp BP Pulse Ox 36.8 C 85 13 136/83 H 92 02/26/17 08:00 02/26/17 08:00 02/26/17 08:00 02/26/17 08:00 02/26/17 08:00 Laboratory Results 02/26/17 03:45 02/26/17 03:45 02/25/17 02/26/17 02/27/17 05:59 05:59 05:59 Intake Total 1700 2170 Output Total 2350 925 800 Balance -650 1245 -800 PT 13.1 SEC (12.0-15.0) 02/17/17 18:50 INR 1.02 (0.83-1.16) 02/17/17 18:50 Physical Exam - Physical Exam General Appearance: alert, no apparent distress EENT: PERRL/EOMI Neck: non-tender, full range of motion, supple, normal inspection Respiratory: crackles (Few), No respiratory distress, No wheezing Cardiac/Chest: normal peripheral pulses, regular rate, rhythm Abdomen: normal bowel sounds, non-tender, soft Pelvic Exam: deferred Rectal: deferred Skin: normal color, warm/dry Neuro/Psych: no motor/sensory deficits, alert, normal mood/affect, oriented x 3 ICD10 Worksheet Patient Problems: Problems Problem Status Onset Dehydration Acute Hypokalemia Acute Pneumonia Acute Complication of feeding tube Acute Primary squamous cell carcinoma of throat Acute Throat cancer Acute Weakness Acute
[2017-02-26] MEDS: ACETAMINOPHEN 325 MG TAB PO PRN (11:33)
[2017-02-26] MEDS: AMITRIPTYLINE HCL 100 MG TAB PO SCH (21:01)
[2017-02-27] MEDS: ACETYLCYSTEINE 10% IH/PO 4 ML VIAL IH SCH ×3 (00:46→11:16)
[2017-02-27] MEDS: IPRATROPIUM/ALBUTEROL 3 ML DEYVIAL IH SCH ×2 (05:34→11:16)
[2017-02-27 05:39] LABS: ANION GAP 11 mEq/L (8-16); CALCIUM 9.4 mg/dL (8.5-10.4); CARBON DIOXIDE 32 mEq/l (22-31); CHLORIDE 94 mEq/L (97-110); CREATININE 0.7 mg/dL (0.6-1.0); GLOMERULAR FILTRATION RATE > 60; GLUCOSE 91 mg/dL (70-100); POTASSIUM 4.4 mEq/L (3.5-5.2); SODIUM 137 mEq/L (134-144)
[2017-02-27] MEDS: NYSTATIN SUSP 500000 UNIT/5 ML UDCUP PO SCH ×2 (05:42→12:48)
[2017-02-27] MEDS: oxyCODONE IR 15 MG TAB PO PRN ×2 (05:47→14:39)
[2017-02-27] MEDS: MORPHINE SULFATE 100 MG PO SCH (09:15)
[2017-02-27] MEDS: DULoxetine 60 MG CAP PO SCH (09:16)
[2017-02-27] MEDS: ESCITALOPRAM OXALATE 10 MG TAB PO SCH (09:16)
[2017-02-27] MEDS: CYCLOBENZAPRINE 10 MG TAB PO PRN (09:16)
[2017-02-27] MEDS: guaiFENesin 600 MG TAB.ER PO SCH (09:17)
[2017-02-27] MEDS: NICOTINE 21 MG/24 HR PATCH TD SCH (09:17)
[2017-02-27] MEDS: POTASSIUM CL 20 MEQ TAB PO SCH (09:17)
[2017-02-27] MEDS: predniSONE 20 MG TAB PO SCH (09:17)
[2017-02-27] MEDS: ENOXAPARIN 40 MG/0.4 ML SYR SC SCH (09:17)
[2017-02-27] MEDS: BUDESONIDE/FORMOTEROL 160/4.5 60 PUFFS/MDI IH SCH (11:16)
[2017-02-27 11:53] VITALS: BP 104/70; TEMP 97.7
--- NOTE | 2017-02-27 14:21 | GDS ---
[f rep st] DISCHARGE SUMMARY ALL DIAGNOSES: 1. Sxguq-nm-dixyrul hypoxic and hypercapnic respiratory failure. 2. Chronic obstructive pulmonary disease with acute exacerbation. 3. Community-acquired pneumonia. 4. Influenza A/viral pneumonitis. 5. Volume overload. 6. History of laryngeal cancer, status post recent PEG removal with ostomy bag in place. 7. Benign hepatic cyst. 8. Chronic pain, on continuous narcotics. 9. Hypertension. HOSPITAL COURSE: A 51-year-old female, who presented with shortness of breath. She was initially ve ry hypoxic at 78% when she presented. She was found to be influenza A positive. CT scan also reveal ed additional right lower lobe consolidation, likely indicating bacterial super infection. She recei steffany 5 days of Tamiflu. She has been treated for community-acquired pneumonia with Rocephin and azith romycin. She has received aggressive pulmonary hygiene, including incentive spirometer, flutter valv e, Mucinex, Mucomyst, and percussion vest. On the day of discharge, she feels well, is saturating at 92% on 2 L; her baseline is nocturnal oxygen. She is anxious to leave. Will prescribe her a total of 2 weeks of antibiotics; course to be completed with Levaquin. I have given her a slow taper of pr ednisone; she had been on 5 mg daily for some time. We will taper her back to 5 mg. She should foll ow up with Dr. Jones as an outpatient. I have given her a nicotine patch, as she is very interested in smoking cessation. I stressed the importance of this. She will be discharged on home oxygen. History of laryngeal cancer: She recently had her PEG tube removed. She has an ostomy bag in place. The fistula is currently closing. ALL PERTINENT STUDIES: Chest and thorax CT angiogram, which showed no evidence of a PE. It did show right lower lobe segmental pneumonia as well as patchy pneumonitis or pulmonary edema. She had a cy st that was seen. Ultrasound confirmed that this was benign that was on her liver. FOLLOWUP: Dr. Jones in 1-2 weeks for ongoing management of her COPD. BILLING: I spent more than 30 minutes on the day of discharge coordinating care. /[id number]/MODL
[2017-02-27 14:39] VITALS: RESP 18
--- NOTE | 2017-02-27 15:08 | PDHOMEO2F ---
Home Oxygen Face to Face Home Orders: I certify that a physician or a nurse practitioner or physician's mental health assistant has had a [id number] encounter with this patient on the date of this order due to the diagnosis listed, which relates to the primary reason the patient requires home oxygen. Alternative treatments have been tried, or considered, and deemed ineffective. It is anticipated that supplemental oxygen will result in improvement with treatment. Home oxygen qualifying diagnosis: COPD SpO2 on room air (%): 83 Frequency of home oxygen needed: continuous Home oxygen liters per minute: 2 Home oxygen delivery device: nasal cannula Concentrator: Yes E-tanks for mobility and back up: Yes If ordering portable O2, is the patient mobile in the home?: Yes I certify that, based on these findings, the home oxygen is medically necessary for this patient for the following length of time. Length of time home oxygen needed: 3 months
--- NOTE | 2017-02-27 15:10 | PDIAF ---
- Diagnosis Diagnosis: COPD/laryngeal cancer Code Status: Full Code - Medication Management Discharge Medications: Medications to Continue on Transfer Albuterol [Proventil Inhaler HFA (*)] 1 - 2 puffs IH Q4H PRN 01/12/16 [Last Taken 05/03/16] Budesonide/Formoterol 160/4.5 [Symbicort 160-4.5 Mcg Inh (*)] 2 puffs IH BID 07/24 [Last Taken 05/04/16] Diclofenac Sodium [Voltaren 75 MG (*)] 75 mg PO BID 01/12/16 [Last Taken ] Gabapentin [Neurontin 100 MG (*)] 100 mg PO BID 01/12/16 [Last Taken 02/17/17] Hydrochlorothiazide [HCTZ (*)] 25 mg PO BID 01/12/16 [Last Taken 02/17/17] Ranitidine HCl [Zantac] 150 mg PO BID PRN 01/12/16 [Last Taken 02/17/17] Amitriptyline HCl [Elavil 50 mg (*)] 200 mg PO HS 02/17/17 [Last Taken 02/16/17] Cyclobenzaprine [Flexeril 10 MG (*)] 10 mg PO TID 02/17/17 [Last Taken 02/17/17] DULoxetine [Cymbalta 60 MG (*)] 60 mg PO BID 02/17/17 [Last Taken 02/17/17] Diphenoxylate HCl/Atrop Sulf [Lomotil Tab (*)] 1 tab PO DAILY PRN 02/17/17 [ Last Taken Unknown] Escitalopram Oxalate [Lexapro 10 MG] 20 mg PO DAILY 02/17/17 [Last Taken ] Morphine Sulfate [Alicia] 100 mg PO BID 02/17/17 [Last Taken Unknown] oxyCODONE IR [Oxycodone Ir (*)] 15 mg PO TID 02/17/17 [Last Taken Unknown] traMADol [Ultram 50 mg (*)] 50 - 100 mg PO Q6 PRN 02/17/17 [Last Taken Unknown] Albuterol [Proventil Neb] 3 ml IH Q2HRS PRN deyvial 02/27/17 [Last Taken Unknown] Nicotine [Nicoderm Cq 21 mg (*)] 21 mg TD DAILY #30 patch 02/27/17 [Last Taken Unknown] guaiFENesin [Mucinex 600 MG (*)] 1,200 mg PO BID tab.er 02/27/17 [Last Taken Unknown] levOFLOXACIN [levAQUIN (*)] 750 mg PO DAILY #5 tab 02/27/17 [Last Taken Unknown] predniSONE 5 mg PO DAILY #140 tab 02/27/17 [Last Taken Unknown] Discharge Medications: Refer to the Discharge Home Medication list for PRN reason. - Orders Services needed: Home Care, Registered Nurse, Certified [employer] Program[employer] Home Care Face to Face: I certify that this patient was under my care and that I had the required [id number] encounter meeting the encounter requirements on the discharge day. My findings support the fact that the patient is homebound as defined in Home Care Face to Face Continued: [facility] Chapter 7 Medicare Benefits Manual 30.1.1 , The condition of the patient is such that there exists a normal inability to leave home and consequently, leaving home would require a considerable and taxing effort. Isolation Type: Droplet Isolation Diet Recommendation: sodium restricted Wound Care Instructions: needs ostomy applied to PEG tube site - Follow Up Care Current Providers and Referrals: [facility] [Other] - As per Instructions Jasbir Jones MD [Medical Doctor] - (1-2 weeks)
[2017-02-27 15:26] VITALS: PULSE 88; O2SAT 85
--- NOTE | 2017-02-27 15:28 | ASMTCMCOM ---
CM Note CM Note Notes: 02/27/2017 Case Management Note Met w/pt and Aunt Mariza who is transporting pt home. Arranged [facility] at pt request for ostomy care. Notified [facility], able to accept pt. Faxed d/c notes. Date Signed: 02/27/2017 03:28 PM Electronically Signed By:Simona Roldan RN
--- NOTE | 2017-02-27 16:46 | ASDISCHSUM ---
Discharge Information Plan Status:Home with Home Health Medically Cleared to Leave:02/26/2017 Discharge Date:02/27/2017 04:43 PM D/C Disposition:Home Health Service ADT D/C Disposition:Home, Routine, Self-Care Projected Discharge Date:02/27/2017 11:00 AM Transportation at D/C:Family Discharge Delay Reason: Follow-Up Date:02/27/2017 11:00 AM Discharge Slot: Final Diagnosis: Placement Information Referral Type:*Home Health Care Services Referral ID:[id number] Provider Name:[facility] Address 1:[address] Address 2: City:[place] Selection Factors: State:[place] Patient Contact Information Contact Name:KIP Relationship:Sister Address:[address] Work Phone: [facility]:[place] Alternate Phone: [facility]/Zip Code:[place] [address] Email: Financial Information Financial Class: Primary Plan Desc:MEDICARE INPATIENT Primary Plan Number:[id number] Secondary Plan Desc:MEDICA[place] Secondary Plan Number:[id number] Assessment Information [facility] CM Progress Note CM Note CM Note Notes: 02/18/2017 Case Management Note: Met w/pt. SATNAM signed Pt lives with daughter Denice @ [phone]. Pt reports using [facility] in the past, but is not current with any home agency. No case management d/c needs identified at this time. There are no therapy evals ordered. Case Management d/c poc: Home independent when medically stable with follow up as directed. Date Signed: 02/18/2017 10:35 AM Electronically Signed By:Simona Roldan RN BC CM Progress Note CM Note CM Note Notes: 02/21/2017 Case Management Note PT is recommending home. Case Management d/c poc: remains home independent when medically stable with follow up as directed. Pt lives with daughter Denice. Case Management available if needs change. Date Signed: 02/21/2017 02:18 PM Electronically Signed By:Simona Roldan RN [facility] CM Progress Note CM Note CM Note Notes: Reviewed chart regarding discharge plan, pt's progress. Per MD notes, pt w/ diffuse viral PNA, acute resp failure requiring high-flow oxygen (15L), difficulty w/ sputum. PT/OT to re-eval and treat; last notes rec home w/ no needs. Pt lives w/ her dghtr Alison. CM will cont to follow for potential needs. Current Discharge Plan: TBD Date Signed: 02/25/2017 05:18 PM Electronically Signed By:Giovanna Echevarria RN [facility] CM Progress Note CM Note CM Note Notes: 02/27/2017 Case Management Note Met w/pt and Aunt Mariza who is transporting pt home. Arranged [facility] at pt request for ostomy care. Notified [facility], able to accept pt. Faxed d/c notes. Date Signed: 02/27/2017 03:28 PM Electronically Signed By:Simona Roldan RN Intervention Information Intervention Type:*HAY-Signed Date of Service:02/18/2017 10:32 AM Patient Type:Observation Staff Member:LINDSAY Roldan, [facility] Hours:0.25 Discipline: Severity: Comment:
== END 2017-02-27 16:43 | disposition home or self-care (01) | DRG 193 ==
LOC: CED 17:45 → CEDHOLD 19:33 → F2W 21:10 → OBSVTOIN 02-18 11:02
PROVIDERS: ADMIT Internal Medicine; ATTEND Internal Medicine
PROC: 0DP6XUZ Removal of Feeding Device from Stomach, External Approach (ICD-10-PCS; principal; 2017-02-22)
DX: J10.08 Influenza due to other identified influenza virus with other specified pneumonia (principal); J96.21 Acute and chronic respiratory failure with hypoxia; J44.1 Chronic obstructive pulmonary disease with (acute) exacerbation; J96.22 Acute and chronic respiratory failure with hypercapnia; I10 Essential (primary) hypertension; K76.89 Other specified diseases of liver; G89.29 Other chronic pain; Z85.21 Personal history of malignant neoplasm of larynx; Z72.0 Tobacco use; E86.0 Dehydration; G35 Multiple sclerosis; E87.6 Hypokalemia; E83.42 Hypomagnesemia; Z93.1 Gastrostomy status
CPT/HCPCS: 71020-PO; 80048-PO; 80076-PO; 82247-PO; 83605-PO; 83690-PO; 83735-PO; 85025-PO; 85610-PO; 85730-PO; 87400-PO; 96365; 97116-GP; 97161-GP; G0378; G8978-GP-CI; G8979-GP-CI; J0690; J0696; J1170; J1650; J1940; J2543; J3370; Q9967